=== PATIENT | female | born 1985 | race Caucasian/White ===

== ENCOUNTER → 2023-08-06 09:24 | Outpatient (CLI) | payer OTHER, SELFPAY ==
--- NOTE | 2023-08-06 09:27 | DI.MG.S_ITS ---
BILATERAL DIGITAL DIAGNOSTIC MAMMOGRAM 3D/2D: 08/06/2023 CLINICAL: Palpable right breast lump. Focal right breast pain. Baseline exam. No prior exams were available for comparison. Both breasts are extremely dense, which lowers the sensitivity of mammography (category d />75% glandular tissue). A square skin marker was placed in the area of clinical pain in the right breast upper outer quadrant, and no mammographic abnormality is identified. No significant masses, calcifications, or other findings are seen in either breast. Of note, exam terminated early due to patient factors prior to complete evaluation of right breast clinical palpable area of concern in the right lower inner quadrant. IMPRESSION: INCOMPLETE: NEEDS ADDITIONAL IMAGING EVALUATION 1) No mammographic abnormality at site of clinical pain in the right breast upper outer quadrant. Recommend further evaluation with targeted right breast ultrasound. Patient will return on a later date to complete imaging. 2) Incomplete evaluation of right breast lower inner quadrant clinical area of palpable concern. Patient will return on a later date to complete imaging. 3) No mammographic evidence of malignancy in the left breast. Based on the Tyrer Cuzick model (a risk assessment model) the patient's lifetime risk is 16.1% and her 10 year risk is 1.4%. According to the ACR, ACS, and NCCN guidelines, an annual breast MRI exam along with mammogram is recommended if the patient's lifetime risk is 20% or greater. This exam was interpreted at Station ID: [id number]. NOTE: For mammograms, a report in lay terms will be sent to the patient. Approximately 15% of breast malignancies will not be visualized mammographically. In the management of a palpable breast mass, a negative mammogram must not discourage biopsy of a clinically suspicious lesion. Electronically Signed By: Christianne Vidal M.D., Ph.D. eb/:08/10/2023 21:56:29 ACR BI-RADS Category 0: Incomplete 3340F
== END ==
PROVIDERS: PCP Nurse Practitioner Family; Referring Provider Nurse Practitioner Family; Visit Provider Nurse Practitioner Family
DX: N63.10 Unspecified lump in the right breast, unspecified quadrant (principal); R22.2 Localized swelling, mass and lump, trunk; R92.343 Mammographic extreme density, bilateral breasts; R92.2 Inconclusive mammogram
CPT/HCPCS: 77066; G0279

== ENCOUNTER 2023-08-06 10:15 | Emergency (ER) | payer OTHER, SELFPAY ==
[2023-08-06] VITALS (35 sets, daily range): BP systolic 64–118; BP diastolic 46–92; PULSE 55–86; RESP 11–29; TEMP 36.3–36.4; O2SAT 97–100; BMI 16.7
--- NOTE | 2023-08-06 10:18 | ED.GENADULT ---
HPI - General Adult General Chief complaint: Unresponsive Stated complaint: LOC Time Seen by Provider: 08/06/23 10:17 Source: patient Mode of arrival: Wheelchair Limitations: no limitations History of Present Illness HPI narrative: Patient has a 38-year-old female. She was in the DI department getting an outpatient mammogram when he was reported that the patient passed out. Patient was brought to the emergency department in a wheelchair. She was pale. Did have a pulse and was breathing on her own but was unresponsive. When she was moved to the [place] and a sternal rub was made the patient then regained consciousness. She was oriented as to where she was. She stated that she was feeling very dizzy and hot. No chest pain. No vomiting. No abdominal pain. Related Data Allergies Allergy/AdvReac Type Severity Reaction Status Date / Time onion Allergy Verified 08/06/23 10:25 Review of Systems Review of Systems ROS Unobtainable: All systems reviewed & are unremarkable except as noted in HPI and below Patient History Social History Smoking Status: Never smoker Exam Initial Vital Signs Initial Vital Signs: Vital Signs Pulse Rate 58 L 08/06/23 10:17 Respiratory Rate 26 H 08/06/23 10:17 Blood Pressure 100/54 L 08/06/23 10:17 Pulse Oximetry 100 08/06/23 10:17 HENMT Head: normal to inspection Resp Effort & Inspection: normal respiratory effort Auscultation: clear to auscultation bilaterally Cardio Rate: regular rate Rhythm: regular rhythm Skin General: no rashes or lesions noted Neuro General: patient alert, patient awake and moves all extremities Extrem General: normal to inspection Course Orders Ordered: ED Orders 08/06/23 10:18 Complete Blood Count AUTO DIFF Stat Comprehensive Metabolic Panel Stat Ethanol (ETOH) Stat Lipase Stat Test Serum,Qual Stat EKG-12 Lead Stat Discontinued Medications Sodium Chloride (Normal Saline 0.9%) 1,000 mls @ 1,000 mls/hr IV BOLUS ONE Stop: 08/06/23 11:16 Last Infusion: 08/06/23 10:50 Dose: Infused Documented By: Admin: 08/06/23 10:23 Dose: 1,000 mls/hr Documented By: JESSICA Sodium Chloride (Normal Saline 0.9%) 1,000 mls @ 1,000 mls/hr IV BOLUS ONE Stop: 08/06/23 11:45 Last Infusion: 08/06/23 11:16 Dose: Infused Documented By: Admin: 08/06/23 10:45 Dose: 1,000 mls/hr Documented By: DONNA Vital Signs Vital signs: Vital Signs - 8 hr 08/06/23 10:17 08/06/23 10:17 08/06/23 10:20 Temperature 97.5 F L Pulse Rate 58 L 55 L Respiratory Rate 26 H 20 Blood Pressure 100/54 L 105/52 L Pulse Oximetry 100 100 Oxygen Delivery Method Room Air 08/06/23 10:21 08/06/23 10:21 08/06/23 10:25 Temperature Pulse Rate 59 L Respiratory Rate Blood Pressure 105/52 L 94/60 Pulse Oximetry 100 Oxygen Delivery Method Room Air 08/06/23 10:25 08/06/23 10:30 08/06/23 10:33 Temperature Pulse Rate 59 L 70 Respiratory Rate 29 H Blood Pressure 93/55 L Pulse Oximetry 100 98 Oxygen Delivery Method 08/06/23 10:33 08/06/23 10:36 08/06/23 10:36 Temperature 97.4 F L Pulse Rate 70 77 Respiratory Rate Blood Pressure 118/92 H Pulse Oximetry 100 Oxygen Delivery Method 08/06/23 10:44 08/06/23 10:44 08/06/23 10:48 Temperature Pulse Rate 78 Respiratory Rate Blood Pressure 64/46 L 98/67 Pulse Oximetry 100 Oxygen Delivery Method Room Air 08/06/23 10:48 08/06/23 10:55 08/06/23 10:55 Temperature Pulse Rate 86 78 Respiratory Rate Blood Pressure 91/59 L Pulse Oximetry 100 100 Oxygen Delivery Method 08/06/23 11:00 08/06/23 11:01 08/06/23 11:01 Temperature Pulse Rate 77 76 Respiratory Rate 24 Blood Pressure 109/54 L Pulse Oximetry 100 97 Oxygen Delivery Method Room Air 08/06/23 11:05 08/06/23 11:05 08/06/23 11:10 Temperature Pulse Rate 77 Respiratory Rate 26 H Blood Pressure 98/51 L 99/53 L Pulse Oximetry 97 Oxygen Delivery Method Room Air 08/06/23 11:10 08/06/23 11:15 08/06/23 11:15 Temperature Pulse Rate 70 61 Respiratory Rate 17 18 Blood Pressure 97/52 L Pulse Oximetry 100 100 Oxygen Delivery Method Room Air 08/06/23 11:20 08/06/23 11:20 08/06/23 11:25 Temperature Pulse Rate 60 Respiratory Rate 26 H Blood Pressure 99/53 L 94/52 L Pulse Oximetry 100 Oxygen Delivery Method 08/06/23 11:25 08/06/23 11:30 08/06/23 11:30 Temperature Pulse Rate 65 66 Respiratory Rate 27 H 20 Blood Pressure 99/49 L Pulse Oximetry 100 100 Oxygen Delivery Method Room Air 08/06/23 11:35 08/06/23 11:35 08/06/23 11:40 Temperature Pulse Rate 65 Respiratory Rate 16 Blood Pressure 96/54 L 102/52 L Pulse Oximetry 100 Oxygen Delivery Method 08/06/23 11:40 08/06/23 11:45 08/06/23 11:45 Temperature Pulse Rate 71 69 Respiratory Rate 26 H 16 Blood Pressure 92/50 L Pulse Oximetry 99 99 Oxygen Delivery Method 08/06/23 11:48 08/06/23 11:48 08/06/23 11:50 Temperature Pulse Rate 83 Respiratory Rate 26 H Blood Pressure 95/50 L 98/50 L Pulse Oximetry 100 Oxygen Delivery Method 08/06/23 11:50 08/06/23 11:55 08/06/23 11:55 Temperature Pulse Rate 72 75 Respiratory Rate 26 H 26 H Blood Pressure 93/53 L Pulse Oximetry 100 100 Oxygen Delivery Method Room Air 08/06/23 12:00 08/06/23 12:00 08/06/23 12:05 Temperature Pulse Rate 67 73 Respiratory Rate 24 22 Blood Pressure 99/48 L Pulse Oximetry 100 100 Oxygen Delivery Method Room Air 08/06/23 12:05 08/06/23 12:10 08/06/23 12:10 Temperature Pulse Rate 69 Respiratory Rate 17 Blood Pressure 98/49 L 101/50 L Pulse Oximetry 99 Oxygen Delivery Method 08/06/23 12:15 08/06/23 12:15 08/06/23 12:20 Temperature Pulse Rate 74 75 Respiratory Rate 17 26 H Blood Pressure 97/53 L Pulse Oximetry 99 100 Oxygen Delivery Method 08/06/23 12:20 08/06/23 12:25 08/06/23 12:25 Temperature Pulse Rate 78 Respiratory Rate 16 Blood Pressure 98/55 L 100/51 L Pulse Oximetry 100 Oxygen Delivery Method 08/06/23 12:30 08/06/23 12:30 08/06/23 12:35 Temperature Pulse Rate 78 84 Respiratory Rate 15 25 H Blood Pressure 97/50 L Pulse Oximetry 100 100 Oxygen Delivery Method 08/06/23 12:37 08/06/23 12:37 08/06/23 12:40 Temperature Pulse Rate 86 Respiratory Rate 24 Blood Pressure 104/53 L 107/55 L Pulse Oximetry Oxygen Delivery Method Medical Decision Making Lab Data Lab results reviewed: Yes I reviewed the patient's lab results. 08/06/23 10:18 08/06/23 10:18 Labs: Lab Results 08/06/23 Range/Units 10:18 WBC 11.3 H (4.5-11.0) X10^3/uL RBC 4.37 (4.0-5.2) X10^6/uL Hgb 13.1 (12.0-16.0) g/dL Hct 39.3 (36-46) % MCV 89.8 (80-100) fL MCH 30.0 (26-34) PG MCHC 33.3 (30-36) % RDW 14.5 (11.6-14.8) % Plt Count 203 (150-400) X10^3/uL Neut % (Auto) 61.2 (50-75) % Lymph % (Auto) 27.9 (25-40) % [place] % (Auto) 9.4 (3-14) % Eos % (Auto) 0.8 L (2-4) % Baso % (Auto) 0.7 (0-2) % Neut # (Auto) 6900 (1528-3998) /uL Lymph # (Auto) 3200 (7924-8588) /uL [place] # (Auto) 1100 H (0-900) /uL Eos # (Auto) 100 (0-450) /uL Baso # (Auto) 100 (0-100) /uL Sodium 138 (137-145) mmol/L Potassium 3.7 (3.4-5.1) mmol/L Chloride 107 (98-107) mmol/L Carbon Dioxide 25 (22-32) mmol/L BUN 18 H (7-17) mg/dL Creatinine 0.62 (0.52-1.04) mg/dL Estimated GFR > 60 (>60) mL/min BUN/Creatinine Ratio 29.0 H (6-22) Glucose 107 H (70-100) mg/dL Calcium 9.1 (8.4-10.2) mg/dL Total Bilirubin 0.7 (0.2-1.3) mg/dL AST 28 (14-36) IU/L ALT 14 (<35) IU/L Alkaline Phosphatase 61 (38-126) U/L Total Protein 7.6 (6.3-8.2) g/dL Albumin 4.6 (3.5-5.0) g/dL Globulin 3.0 (1.7-4.1) g/dL Albumin/Globulin Ratio 1.5 (1.0-2.8) Lipase 175 (23-300) U/L Serum , Qual Negative (Negative) Ethyl Alcohol < 10 ( - 10) mg/dL Point of Care Testing Glucose POC 120 Point of care testing: Point of Care Testing Glucose POC 120 ECG Data Attestation: I personally reviewed and interpreted this ECG as follows: Interpretation: Sinus bradycardia Ventricular rate of 58 Normal axis Normal QRS Normal QTC No ST T wave changes MDM Narrative Medical decision making narrative: Patient did have what appears to be a syncopal episode while getting a mammogram done. Here in the ER her blood pressure was somewhat low however she is very skinny. Her blood sugar was slightly low and she did state that she ate breakfast this morning after fluids and time and food here in the ER she reports resolution of symptoms. She did pass out about 1 week ago when she had blood drawn. She is scheduled to see Neurology about potential issues with MS. Will discharge patient home with return precautions she expressed understanding and agreement with plan. Discharge Plan Departure Patient Disposition: Home Clinical Impression: Syncope Instructions: Fainting Activity Restrictions/Additional Instructions: Continue to take any medications as directed. Recommend that you contact your primary care doctor for a follow-up and keep all of your scheduled medical appointments. Return to the emergency department for new or worsening symptoms. Referrals: Dominique Main FNP-C [Primary Care Provider] - Stand Alone Forms: Patient Portal/API, Naloxone Standing Order CHRISTY
[2023-08-06] MEDS: SODIUM CHLORIDE 0.9% 1,000 ML 1000 ML IV ×2 (10:23→10:45)
[2023-08-06 10:33] LABS: Add Manual Diff / Slide Review NO; Basophils Absolute Auto 100 /uL (0-100); Basophils Percent Auto 0.7 % (0-2); Eosinophils Absolute Auto 100 /uL (0-450); Eosinophils Percent Auto 0.8 % (2-4); Hematocrit 39.3 % (36-46); Hemoglobin 13.1 g/dL (12.0-16.0); Lymphocytes Absolute Auto 3200 /uL (1100-4500); Lymphocytes Percent Auto 27.9 % (25-40); Mean Corpuscular HGB Conc 33.3 % (30-36); Mean Corpuscular Volume 89.8 fL (80-100); Monocytes Absolute Auto 1100 /uL (0-900); Monocytes Percent Auto 9.4 % (3-14); Neutrophils Absolute Auto 6900 /uL (1500-7000); Neutrophils Percent Auto 61.2 % (50-75); Platelet Count 203 X10^3/uL (150-400); Red Blood Cell Count 4.37 X10^6/uL (4.0-5.2); Red Cell Distribution Width 14.5 % (11.6-14.8); White Blood Cell Count 11.3 X10^3/uL (4.5-11.0)
[2023-08-06 10:37] LABS: Alanine Aminotransferase 14 IU/L (<35); Albumin 4.6 g/dL (3.5-5.0); Albumin Globulin Ratio 1.5 (1.0-2.8); Alkaline Phosphatase 61 U/L (38-126); Aspartate Aminotransferase 28 IU/L (14-36); Bilirubin Total 0.7 mg/dL (0.2-1.3); Blood Urea Nitrogen 18 mg/dL (7-17); Calcium 9.1 mg/dL (8.4-10.2); Carbon Dioxide 25 mmol/L (22-32); Chloride 107 mmol/L (98-107); Estimated Glomerular Filt Rate > 60 mL/min (>60); Ethanol (ETOH) < 10 mg/dL; Glucose 107 mg/dL (70-100); HEMOLYSIS < 15 (0-50); Lipase 175 U/L (23-300); Potassium 3.7 mmol/L (3.4-5.1); Sodium 138 mmol/L (137-145); Total Protein 7.6 g/dL (6.3-8.2)
[2023-08-06 10:40] LABS: Pregnancy Test Serum,Qual Negative (Negative)
--- NOTE | 2023-08-06 10:44 | PC.NURSE ---
Pt hypotensive symptomatic with dizziness, shiveriing . Pt repositioned to trandelenburg position, 1st liter of NS fluids completed. Dr. Bernabe notified and 2nd liter fluids ordered (see MAY). 2nd IV placed.
--- NOTE | 2023-08-06 11:17 | PC.NURSE ---
Addendum entered by Jose Roberto Feng R.N. 08/06/23 11:19: Pt reports history of hypothyroidism, hypotension, and is currently being worked up for possible MS. Currently has an appointment with neurology in November with difficulty scheduling an appt. sooner. Original Note: Pt laughing in room with S/O. Dizziness has resolved, pt remains light headed. She is no longer shaking, states feel comfortable.
== END 2023-08-06 13:20 | disposition home or self-care (01) ==
PROVIDERS: Emergency Provider Emergency Medicine; PCP Nurse Practitioner Family
DX: R55 Syncope and collapse (principal)
CPT/HCPCS: 77066; 80053; 80320; 82962; 83690; 84703; 85025; 93005; 93010; 99283; 99284; G0279

== ENCOUNTER → 2023-08-08 14:14 | Outpatient (CLI) | payer OTHER, SELFPAY ==
--- NOTE | 2023-08-08 | DI.MG.S_ITS ---
UNILATERAL RIGHT DIGITAL DIAGNOSTIC MAMMOGRAM 3D/2D WITH ADDITIONAL VIEWS: 08/08/2023 CLINICAL: Additional evaluation requested from prior study. Comparison is made to exams dated: 08/06/2023 mammogram and 08/08/2023 ultrasound - [facility]. The right breast is extremely dense, which lowers the sensitivity of mammography (category d />75% glandular tissue). In the area of clinical palpable concern as indicated by the BB marker, there is a 0.7 oval asymmetry in the lower posterior region on MLO view. This finding may correspond to cluster of asymmetries seen in the central middle depth breast on CC view. No other significant masses or calcifications are seen in the right breast. IMPRESSION: INCOMPLETE: NEEDS ADDITIONAL IMAGING EVALUATION Right breast 0.7 cm oval asymmetry in the lower inner posterior position. An ultrasound is recommended for further evaluation and is scheduled to immediately follow this examination. Based on the Tyrer Cuzick model (a risk assessment model) the patient's lifetime risk is 16.1% and her 10 year risk is 1.4%. According to the ACR, ACS, and NCCN guidelines, an annual breast MRI exam along with mammogram is recommended if the patient's lifetime risk is 20% or greater. This exam was interpreted at Station ID: [id number]. NOTE: For mammograms, a report in lay terms will be sent to the patient. Approximately 15% of breast malignancies will not be visualized mammographically. In the management of a palpable breast mass, a negative mammogram must not discourage biopsy of a clinically suspicious lesion. Electronically Signed By: Christianne Vidal M.D., Ph.D. eb/:08/10/2023 22:16:21 ACR BI-RADS Category 0: Incomplete 3340F
--- NOTE | 2023-08-08 14:15 | DI.US.S_ITS ---
PROCEDURE: US BREAST RT LIMITED COMPARISON: None. INDICATIONS: RIGHT BREAST LUMP FINDINGS: IMPRESSION: Dictated by: Christianne Vidal M.D.,Ph.D. on 08/08/2023 at 15:20 Approved by: Christianne Vidal M.D.,Ph.D. on 08/08/2023 at 15:35
--- NOTE | 2023-08-08 14:48 | DI.US.S_ITS ---
Patient Name: JAY OROURKE date: 1985 Sex: F Attending Physician: Jose David Indications: Date: 08/10/2023 22:35 At the request of: CHERYL FRY Procedure: US breast RT limited LIMITED ULTRASOUND OF RIGHT BREAST: 08/08/2023 CLINICAL: Patient returns for additional imaging for palpable right breast lump and focal right breast pain. Comparison is made to exams dated: 08/06/2023 mammogram - [facility]. Ultrasound of the right breast was performed. There is a 0.7 cm x 0.3 cm x 0.4 cm oval mass with a circumscribed margin in the right breast at 5 o'clock, 6 cm from the nipple. This oval mass is hypoechoic. This correlates as palpated and with mammography findings. Color flow imaging demonstrates that there is no vascularity present. There is an incidental 3 mm benign simple cyst at 5 o'clock, 7 cm from the nipple. There is a 0.6 cm x 0.2 cm x 0.8 cm oval mass with a circumscribed margin in the right breast at 10 o'clock, 4 cm from the nipple. This oval mass is hypoechoic. This correlates with area of clinical pain. Color flow imaging demonstrates that there is no vascularity present. No sonographic abnormality seen in the area of clinical pain in the right breast at 11 o'clock, 4 cm from the nipple. No abnormal lymph nodes are seen in the axilla. IMPRESSION: PROBABLY BENIGN 1) Right breast 0.7 cm hypoechoic oval circumscribed mass at 5 o'clock, 6 cm from the nipple corresponding to area of clinical palpable concern. Finding may represent a complicated cyst and is Continued Report - Page 2 of 2 Patient Name: JAY OROURKE date: 1985 Sex: F Attending Physician: Jose David Indications: Date: 08/10/2023 22:35 At the request of: CHERYL FRY Procedure: US breast RT limited probably benign. A follow-up mammogram and an ultrasound in 6 months is recommended to demonstrate stability. 2) Right breast 0.8 cm hypoechoic oval circumscribed mass at 10 o'clock, 4 cm from the nipple corresponding to area of clinical pain. Finding may represent a complicated cyst and is probably benign. A follow-up mammogram and an ultrasound in 6 months is recommended to demonstrate stability. 3) No sonographic abnormality in the area of clinical concern at 11 o'clock, 4 cm from the nipple. Clinical follow-up is recommended, and further management of palpable abnormalities or other focal signs or symptoms should be based on the results of clinical evaluation. If palpable abnormality or other concerning symptom persists or progresses, further clinical evaluation should be considered. Findings and recommendations were conveyed to the patient during today's evaluation. This exam was interpreted at Station ID: [id number]. Electronically Signed By: Christianne Vidal M.D., Ph.D. eb/:08/10/2023 22:35:30 letter sent: Followup Recommended Ultrasound BI-RADS: 3 Probably benign
== END ==
PROVIDERS: PCP Nurse Practitioner Family; Referring Provider Nurse Practitioner Family; Visit Provider Nurse Practitioner Family
DX: N63.14 Unspecified lump in the right breast, lower inner quadrant; R92.8 Other abnormal and inconclusive findings on diagnostic imaging of breast; N63.11 Unspecified lump in the right breast, upper outer quadrant; N60.01 Solitary cyst of right breast; R92.341 Mammographic extreme density, right breast
CPT/HCPCS: 76642; 77065; G0279

== ENCOUNTER 2024-01-23 09:10 | Observation (INO) | payer OTHER, SELFPAY ==
[2024-01-23] VITALS (24 sets, daily range): BP systolic 93–120; BP diastolic 46–72; PULSE 53–93; RESP 12–24; TEMP 36.3–37.2; O2SAT 95–100; BMI 16.4
--- NOTE | 2024-01-23 | PATH_ITS ---
[facility] Accession Number: [id number] No. of containers..01 Tissue . 01 Material submitted: . appendix - APPENDIX . 01 Diagnosis: APPENDIX, APPENDECTOMY: Acute appendicitis and associated acute serositis. Negative for dysplasia and malignancy. MRV 01/25/2024 1412 Local . 01 Electronically signed: . Martin Zapien MD, Pathologist NPI- [id number] . 01 Gross description: . Received in formalin with two patient identifiers and appendix, is a mitchell and yellow, vermiform appendix (5.3 cm in length by 1.0 cm in diameter) with mesoappendix up to 1.6 cm. The serosa is smooth with no mitchell exudate seen. The margin is inked blue, and the lumen is patent and dilated, containing a mitchell to slightly orange liquid and grumous material. The gavin are mitchell and average 0.4 cm thick. No lesions or perforations grossly seen. The lumen ranges from 0.1 to 0.5 cm in diameter. Compliance Professional sections include the margin, one-half of the bisected distal tip, and cross sections submitted in A1. ([id number]) /MRV 01/24/2024 1227 Local . 01 Pathologist provided ICD-10: K35.80 . 01 CPT . 894500 Specimen Comment: A courtesy copy of this report has been sent to [phone] Performed at: [address] [id number] MD Bharathi Rincon MD Phone: [phone]
[2024-01-23 09:37] LABS: Add Manual Diff / Slide Review NO; Basophils Absolute Auto 0 /uL (0-100); Basophils Percent Auto 0.4 % (0-2); Eosinophils Absolute Auto 100 /uL (0-450); Eosinophils Percent Auto 0.6 % (2-4); Hematocrit 39.5 % (36-46); Hemoglobin 13.2 g/dL (12.0-16.0); Lymphocytes Absolute Auto 1300 /uL (1100-4500); Lymphocytes Percent Auto 14.3 % (25-40); Mean Corpuscular HGB Conc 33.4 % (30-36); Mean Corpuscular Hemoglobin 30.4 PG (26-34); Monocytes Absolute Auto 1100 /uL (0-900); Monocytes Percent Auto 11.6 % (3-14); Neutrophils Absolute Auto 6900 /uL (1500-7000); Neutrophils Percent Auto 73.1 % (50-75); Platelet Count 156 X10^3/uL (150-400); Red Blood Cell Count 4.33 X10^6/uL (4.0-5.2); Red Cell Distribution Width 13.6 % (11.6-14.8); White Blood Cell Count 9.4 X10^3/uL (4.5-11.0)
[2024-01-23 09:38] LABS: Alanine Aminotransferase 12 IU/L (<35); Albumin 4.5 g/dL (3.5-5.0); Albumin Globulin Ratio 1.7 (1.0-2.8); Alkaline Phosphatase 45 U/L (38-126); Aspartate Aminotransferase 25 IU/L (14-36); BUN Creatinine Ratio 21.2 (6-22); Bilirubin Total 0.5 mg/dL (0.2-1.3); Blood Urea Nitrogen 14 mg/dL (7-17); Calcium 8.8 mg/dL (8.4-10.2); Carbon Dioxide 25 mmol/L (22-32); Chloride 106 mmol/L (98-107); Estimated Glomerular Filt Rate > 60 mL/min (>60); Globulin 2.7 g/dL (1.7-4.1); Glucose 87 mg/dL (70-100); HEMOLYSIS < 15 (0-50); Lipase 149 U/L (23-300); Potassium 3.9 mmol/L (3.4-5.1); Sodium 137 mmol/L (137-145); Total Protein 7.2 g/dL (6.3-8.2)
--- NOTE | 2024-01-23 10:30 | ED_ITS ---
HPI - Abdominal Pain General Chief Complaint: Abdominal Pain Stated Complaint: severe abd pain r side Time Seen by Provider: 01/23/24 10:30 Source: patient, RN notes reviewed and old records reviewed Mode of arrival: Family Vehicle Limitations: no limitations History of Present Illness HPI narrative: 38-year-old female no reported medical issues who presents with complaint of right lower quadrant pain. Patient states pain woke up from sleep this morning. No back or flank pain just in the right lower quadrant. Denies any fevers or chills. She has had some nausea no vomiting. Denies any diarrhea or constipation. Denies any dysuria, urgency or frequency. No new vaginal bleeding or discharge. Patient states last menstrual. Has a proximally 2 weeks ago. She does not have any concerns for at this time. States no daily medications, no prior surgeries. No known drug allergies. No regular tobacco, alcohol or recreational drugs. Related Data Home Medications Medication Instructions Recorded Confirmed estradiol 0.01% (0.1 mg/gram) 1 g vaginal 3XW 01/23/24 01/23/24 vaginal cream Allergies Allergy/AdvReac Type Severity Reaction Status Date / Time onion Allergy Anaphylaxis Verified 01/23/24 15:14 Review of Systems Review of Systems ROS Unobtainable: All systems reviewed & are unremarkable except as noted in HPI and below Patient History Medical History (Updated 01/23/24 @ 15:17 by Eben Hunt RN) Hx of fall Ambulates with cane Osteoporosis Hyperparathyroidism Neurologic abnormality Hypothyroidism Social History household members: children Smoking Status: Never smoker alcohol intake: never Smoking Status: Never smoker alcohol intake frequency: 0-2 drinks per day Substance Use Type: marijuana Exam Narrative Exam Narrative: GENERAL: Alert and oriented x three, thin, well-appearing female in mild distress HEENT: Head normocephalic, atraumatic, EOMI, pupils reactive, face symmetric, moist mucous membranes NECK: Supple, full range of motion CARDIOVASCULAR: Regular rate and rhythm without murmurs, rubs or gallops. RESPIRATORY: Breath sounds equal bilaterally, no wheezes rales or rhonchi. ABDOMEN: Soft, positive for right lower quadrant tenderness, positive Rovsing sign. Normoactive bowel sounds all 4 quadrants. No guarding, positive rebound, no rigidity, no mass : No CVA tenderness bilaterally. EXTREMITIES: Normal range of motion, no clubbing or edema. Neurovascularly intact NEUROLOGICAL: Cranial nerves II through XII grossly intact. Moving all extremities SKIN: Warm, dry, no petechiae, no rashes or lesions. Initial Vital Signs Initial Vital Signs: Vital Signs Pulse Rate 93 H 01/23/24 09:18 Blood Pressure 118/57 L 01/23/24 09:18 Pulse Oximetry 99 01/23/24 09:18 Course Orders Ordered: ED Orders 01/23/24 09:20 Test Serum,Qual Stat 01/23/24 09:21 Complete Blood Count AUTO DIFF Stat Comprehensive Metabolic Panel Stat Lipase Stat 01/23/24 09:22 EKG-12 Lead Stat 01/23/24 10:44 CT abdomen pelvis w con Stat Acetaminophen (Acetaminophen 325 Mg Tablet) 650 mg PO Q6H PRN PRN Reason: Fever/Mild Pain (1-3) Hydromorphone HCl (Hydromorphone 0.5 Mg Inj) 0.5 mg IV Q2H PRN PRN Reason: Pain, Severe (7-10) Piperacillin Sod/Tazobactam (Sod 3.375 gm/ Sodium Chloride) 100 mls @ 25 mls/hr IV Q8H BENNY Stop: 01/26/24 20:59 Lactated Ringer's (Lactated Ringers) 1,000 mls @ 42 mls/hr IV NOW ONE Stop: 01/24/24 15:21 Last Admin: 01/23/24 15:34 Dose: 42 mls/hr Documented By: VINI Ibuprofen (Ibuprofen 600 Mg Tablet) 600 mg PO Q6H PRN PRN Reason: Fever/Mild Pain (1-3) Naloxone HCl (Naloxone 0.4 Mg/Ml Vial) 0.2 mg IV Q2MIN PRN PRN Reason: Opiate Reversal Ondansetron HCl (Ondansetron 4 Mg/2 Ml Inj) 4 mg IV NOW PRN PRN Reason: Nausea And Vomiting Last Admin: 01/23/24 10:56 Dose: 4 mg Documented By: KAYLEE Oxycodone HCl (Oxycodone Ir 5 Mg Tablet) 5 mg PO Q3H PRN PRN Reason: Pain, Moderate (4-6) Discontinued Medications Piperacillin Sod/Tazobactam (Sod 4.5 gm/ Sodium Chloride) 100 mls @ 200 mls/hr IV NOW ONE Stop: 01/23/24 12:35 Last Infusion: 01/23/24 13:42 Dose: 0 mls/hr Documented By: Admin: 01/23/24 13:01 Dose: 200 mls/hr Documented By: RAISA Acetaminophen (Ofirmev) 1,000 mg in 100 mls @ 400 mls/hr IV NOW ONE Stop: 01/23/24 12:50 Last Infusion: 01/23/24 13:22 Dose: Infused Documented By: Admin: 01/23/24 12:56 Dose: 400 mls/hr Documented By: BS Piperacillin Sod/Tazobactam (Sod 3.375 gm/ Sodium Chloride) 100 mls @ 25 mls/hr IV Q8H BENNY Stop: 01/26/24 13:46 Ketorolac Tromethamine (Ketorolac 30 Mg/Ml Vial) 15 mg IV NOW ONE Stop: 01/23/24 10:45 Last Admin: 01/23/24 10:56 Dose: 15 mg Documented By: KAYLEE Scopolamine (Scopolamine 1 Patch) 1 patch TOP NOW ONE Stop: 01/23/24 16:09 Last Admin: 01/23/24 16:09 Dose: 1 patch Documented By: VINI Vital Signs Vital signs: Vital Signs - 8 hr 01/23/24 09:30 01/23/24 09:30 01/23/24 10:00 Pulse Rate 71 Blood Pressure 107/54 L 99/53 L Pulse Oximetry 100 01/23/24 10:00 01/23/24 10:30 01/23/24 10:30 Pulse Rate 74 63 Blood Pressure 102/52 L Pulse Oximetry 100 100 01/23/24 12:28 01/23/24 12:29 01/23/24 12:29 Pulse Rate 91 H 77 Blood Pressure 109/55 L Pulse Oximetry 100 100 01/23/24 12:30 01/23/24 12:30 Pulse Rate 70 Blood Pressure 108/58 L Pulse Oximetry 100 MDM - Abdominal Pain Lab Data 01/23/24 09:21 01/23/24 09:21 Labs: Lab Results 01/23/24 01/23/24 Range/Units 09:20 09:21 WBC 9.4 (4.5-11.0) X10^3/uL RBC 4.33 (4.0-5.2) X10^6/uL Hgb 13.2 (12.0-16.0) g/dL Hct 39.5 (36-46) % MCV 91.0 (80-100) fL MCH 30.4 (26-34) PG MCHC 33.4 (30-36) % RDW 13.6 (11.6-14.8) % Plt Count 156 (150-400) X10^3/uL Neut % (Auto) 73.1 (50-75) % Lymph % (Auto) 14.3 L (25-40) % [place] % (Auto) 11.6 (3-14) % Eos % (Auto) 0.6 L (2-4) % Baso % (Auto) 0.4 (0-2) % Neut # (Auto) 6900 (1509-5317) /uL Lymph # (Auto) 1300 (5061-6305) /uL [place] # (Auto) 1100 H (0-900) /uL Eos # (Auto) 100 (0-450) /uL Baso # (Auto) 0 (0-100) /uL Sodium 137 (137-145) mmol/L Potassium 3.9 (3.4-5.1) mmol/L Chloride 106 (98-107) mmol/L Carbon Dioxide 25 (22-32) mmol/L BUN 14 (7-17) mg/dL Creatinine 0.66 (0.52-1.04) mg/dL Estimated GFR > 60 (>60) mL/min BUN/Creatinine Ratio 21.2 (6-22) Glucose 87 (70-100) mg/dL Calcium 8.8 (8.4-10.2) mg/dL Total Bilirubin 0.5 (0.2-1.3) mg/dL AST 25 (14-36) IU/L ALT 12 (<35) IU/L Alkaline Phosphatase 45 (38-126) U/L Total Protein 7.2 (6.3-8.2) g/dL Albumin 4.5 (3.5-5.0) g/dL Globulin 2.7 (1.7-4.1) g/dL Albumin/Globulin Ratio 1.7 (1.0-2.8) Lipase 149 (23-300) U/L Serum , Qual Negative (Negative) Point of care testing: Point of Care Testing Test Results Negative Urine Dip Bedside Urine Glucose Negative Bedside Urine Bilirubin - Negative Bedside Urine Ketone - Negative Urine Specific [place] 1.010 Bedside Urine Occult Blood - Negative Bedside Urine pH 6.5 Bedside Urine Protein - Negative Bedside Urine Urobilinogen - Negative Bedside Urine Nitrite - Negative Bedside Urine Leukocytes - Negative Esterase Imaging Data CT scan - abdomen/pelvis: Radiologist's Impression: Close Abdomen/Pelvis CT (Signed) Raciel Weeks - 01/23/24 Launch?[address] [address] [address] Scan Report Signed Patient: Ankita Mendoza MR#: [id number] : 1985 Acct:[id number] Age/Sex: 38 / F Date of Service: 01/23/24 Loc: ED Accession Number: [id number] Procedure: CT abdomen pelvis w con Ordering Provider: Lori Hough D.O. PROCEDURE: CT ABDOMEN PELVIS W CON INDICATIONS: RLQ pain, started overnight, + rosvings TECHNIQUE: After the administration of intravenous contrast, axial sections acquired from the lung bases to the pubic symphysis. Coronal and sagittal reformats were performed. For radiation dose reduction, the following was used: automated exposure control, adjustment of mA and/or kV according to patient size. COMPARISON: None. FINDINGS: Image quality: Diagnostic Lower chest: Mild basal atelectasis. Liver: Indeterminate subcentimeter lesions are too small to characterize, usually cysts or hemangiomas Gallbladder and biliary system: Possible small polyp at the gallbladder fundus versus small stone. No pathologic biliary dilation. This could be better evaluated with ultrasound if clinically needed. Pancreas: No ductal dilation Spleen: Nonenlarged Adrenals: No discrete nodules Kidneys: No solid mass. No hydronephrosis Vessels and lymph nodes: The main portal vein appears patent. No abdominal aortic aneurysm. No pathologic lymph nodes by size criteria. Bowel and peritoneum: No evidence of small bowel obstruction. Moderate to large fecal loading is present. No pathologic ascites or drainable abscess. The appendix is mildly distended measuring 8 mm with mild surrounding fat stranding. Body wall: Unremarkable Pelvis: Bladder is unremarkable. Possible uterine fibroids. Prominent adnexal vessels are present. Possible right ovarian corpus luteum cyst. The uterus is prominent and heterogeneous enhancing, possibly physiologic for age. Bones: No acute or suspicious osseous finding. IMPRESSION: Mildly distended appendix measuring 8 mm with mild surrounding edematous fat stranding suspicious for acute uncomplicated appendicitis. Moderate to large fecal loading. No small bowel obstruction. Prominent uterus with heterogeneous enhancement, likely physiologic for age. Suspected fundal fibroid Prominent left adnexal veins, sometimes seen in the setting of pelvic congestion. Other findings as above Dictated by: Raciel Weeks M.D. on 01/23/2024 at 11:59 Approved by: Raciel Weeks M.D. on 01/23/2024 at 12:04 [facility] Narrative Medical decision making narrative: CBC shows a white count of 9.4 hemoglobin of 13 platelets of 156. Electrolytes are normal BUN 14 creatinine 0.66 glucose is 87 LFTs are negative. is negative. Point of care urine is negative. CT abdomen pelvis but with oral contrast as patient is quite thin her BMI is 16 and felt it might not be an adequate study with IV contrast. CT shows mildly distended appendix measuring 8 mm mild surrounding edematous fat stranding suspicious for acute noncompliant appendicitis [id number] fecal loading no small-bowel obstruction prominent uterus with heterogeneous enhancement likely physiologic 8 suspected fundal fibroid prominent left adnexal vein sometimes setting of pelvic congestion. Patient received Toradol, Zofran and Zosyn. NPO. Updated patient last meal was 7:00 p.m. has not had anything to eat or drink since. She states Toradol was helpful she is still uncomfortable. She would like to avoid narcotics unless absolutely necessary. We will try a dose of IV Tylenol but discussed can have something stronger if inadequate. Spoke with Dr. Olson, general surgery: Accepts plan for OR likely later this afternoon/evening. Discharge Plan Departure Patient Disposition: Admitted as Observation Clinical Impression: Acute appendicitis Qualifiers: Acute appendicitis type: unspecified acute appendicitis type Qualified Code(s): K35.80 - Unspecified acute appendicitis Admit Date/Time: 01/23/24 12:39 Admit Provider: Alex Olson
[2024-01-23 10:42] LABS: Pregnancy Test Serum,Qual Negative (Negative)
--- NOTE | 2024-01-23 10:44 | DI.CT.S_ITS ---
PROCEDURE: CT ABDOMEN PELVIS W CON INDICATIONS: RLQ pain, started overnight, + rosvings TECHNIQUE: After the administration of intravenous contrast, axial sections acquired from the lung bases to the pubic symphysis. Coronal and sagittal reformats were performed. For radiation dose reduction, the following was used: automated exposure control, adjustment of mA and/or kV according to patient size. COMPARISON: None. FINDINGS: Image quality: Diagnostic Lower chest: Mild basal atelectasis. Liver: Indeterminate subcentimeter lesions are too small to characterize, usually cysts or hemangiomas Gallbladder and biliary system: Possible small polyp at the gallbladder fundus versus small stone. No pathologic biliary dilation. This could be better evaluated with ultrasound if clinically needed. Pancreas: No ductal dilation Spleen: Nonenlarged Adrenals: No discrete nodules Kidneys: No solid mass. No hydronephrosis Vessels and lymph nodes: The main portal vein appears patent. No abdominal aortic aneurysm. No pathologic lymph nodes by size criteria. Bowel and peritoneum: No evidence of small bowel obstruction. Moderate to large fecal loading is present. No pathologic ascites or drainable abscess. The appendix is mildly distended measuring 8 mm with mild surrounding fat stranding. Body wall: Unremarkable Pelvis: Bladder is unremarkable. Possible uterine fibroids. Prominent adnexal vessels are present. Possible right ovarian corpus luteum cyst. The uterus is prominent and heterogeneous enhancing, possibly physiologic for age. Bones: No acute or suspicious osseous finding. IMPRESSION: Mildly distended appendix measuring 8 mm with mild surrounding edematous fat stranding suspicious for acute uncomplicated appendicitis. Moderate to large fecal loading. No small bowel obstruction. Prominent uterus with heterogeneous enhancement, likely physiologic for age. Suspected fundal fibroid Prominent left adnexal veins, sometimes seen in the setting of pelvic congestion. Other findings as above Dictated by: Raciel Weeks M.D. on 01/23/2024 at 11:59 Approved by: Raciel Weeks M.D. on 01/23/2024 at 12:04
[2024-01-23] MEDS: ONDANSETRON 4 MG/2 ML INJ IV (10:56)
[2024-01-23] MEDS: KETOROLAC 30 MG/ML VIAL 15 MG IV (10:56)
[2024-01-23] MEDS: ACETAMINOPHEN IV 1,000 MG/100 ML VIAL 400 MG IV (12:56)
[2024-01-23] MEDS: PIPERACILLIN/TAZO 4.5 GM in SODIUM CHLORIDE 0.9% 100 ML IV (13:01)
--- NOTE | 2024-01-23 13:37 | P.HP_ITS ---
History of Present Illness History of Present Illness Date Patient Seen: 01/23/24 Time Patient Seen: 13:38 Chief complaint: severe abd pain r side Narrative: Ankita Mendoza is a 38-year-old woman PMH hypothyroidism, possible multiple sclerosis seen in the emergency room for acute appendicitis. She awoke out of sleep with right lower quadrant pain this morning. CT abdomen pelvis demonstrates dilated appendix with fat stranding no abscess. She received 4.5 g of Zosyn. No prior abdominal surgery. She has an unspecified neurologic condition perhaps multiple sclerosis. 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 [facility] Medical History (Updated 01/23/24 @ 13:42 by Alex Olson MD) Neurologic abnormality Hypothyroidism Social History Smoking Status: Never smoker Meds Home Medications and Allergies Allergies Allergy/AdvReac Type Severity Reaction Status Date / Time onion Allergy Verified 08/06/23 10:25 Exam Vital Signs (past 8 hours): - 01/23/24 09:18 01/23/24 09:18 01/23/24 09:19 Temperature 97.4 F L Pulse Rate 93 H 82 Respiratory Rate 20 Blood Pressure 118/57 L 118/57 L Pulse Oximetry 99 99 Oxygen Delivery Method Room Air 01/23/24 09:30 01/23/24 09:30 01/23/24 10:00 Temperature Pulse Rate 71 Respiratory Rate Blood Pressure 107/54 L 99/53 L Pulse Oximetry 100 Oxygen Delivery Method 01/23/24 10:00 01/23/24 10:30 01/23/24 10:30 Temperature Pulse Rate 74 63 Respiratory Rate Blood Pressure 102/52 L Pulse Oximetry 100 100 Oxygen Delivery Method 01/23/24 12:28 01/23/24 12:29 01/23/24 12:29 Temperature Pulse Rate 91 H 77 Respiratory Rate Blood Pressure 109/55 L Pulse Oximetry 100 100 Oxygen Delivery Method 01/23/24 12:30 01/23/24 12:30 Temperature Pulse Rate 70 Respiratory Rate Blood Pressure 108/58 L Pulse Oximetry 100 Oxygen Delivery Method Oxygen Delivery Method Room Air Narrative Exam Narrative: General adult woman thin alert oriented no distress Chest nonlabored respiration Abdomen right lower quadrant tenderness no stephon peritonitis. Extremities warm well perfused Objective Labs 01/23/24 09:21 10/30/24 09:21 Labs: Laboratory Results - last 24 hr 01/23/24 01/23/24 09:20 09:21 WBC 9.4 RBC 4.33 Hgb 13.2 Hct 39.5 MCV 91.0 MCH 30.4 MCHC 33.4 RDW 13.6 Plt Count 156 Neut % (Auto) 73.1 Lymph % (Auto) 14.3 L [place] % (Auto) 11.6 Eos % (Auto) 0.6 L Baso % (Auto) 0.4 Neut # (Auto) 6900 Lymph # (Auto) 1300 [place] # (Auto) 1100 H Eos # (Auto) 100 Baso # (Auto) 0 Sodium 137 Potassium 3.9 Chloride 106 Carbon Dioxide 25 BUN 14 Creatinine 0.66 Estimated GFR > 60 BUN/Creatinine Ratio 21.2 Glucose 87 Calcium 8.8 Total Bilirubin 0.5 AST 25 ALT 12 Alkaline Phosphatase 45 Total Protein 7.2 Albumin 4.5 Globulin 2.7 Albumin/Globulin Ratio 1.7 Lipase 149 Serum , Qual Negative Assessment & Plan Assessment and plan (1) Acute appendicitis: Qualifiers: Acute appendicitis type: unspecified acute appendicitis type Qualified Code(s): K35.80 - Unspecified acute appendicitis Status: Acute Assessment & Plan narrative: 38-year-old woman with symptoms and radiographic findings consistent with acute uncomplicated appendicitis. I discussed management options including conservative therapy with antibiotics versus appendectomy, the risks and benefits of each. Following discussion her preference is to proceed with surgery. Overview of the operation described. Operative risks including hemorrhage, infection, damage to surrounding structures were reviewed. Her questions have been answered. -NPO -Zosyn -laparoscopic appendectomy 01/22 with anticipated discharge later today or tomorrow morning Time-Based Coding :: [TOTAL MINUTES] spent with patient and on the chart (including review of chart, obtaining history, exam, reviewing outside data, placing orders, documenting exam and treatment plan, and counseling patient) on [DATE].
[2024-01-23] MEDS: LACTATED RINGERS 1,000 ML 42 ML IV (15:34)
--- NOTE | 2024-01-23 15:37 | SUR.HOLD ---
Zoxyn was infusing when patient was transferred to the surgery department. Infusion complete.
[2024-01-23] MEDS: SCOPOLAMINE 1 PATCH TOP (16:09)
[2024-01-23] MEDS: PIPERACILLIN/TAZO 3.375 GM in SODIUM CHLORIDE 0.9% 100 ML IV (17:37)
[2024-01-23] MEDS: BUPIVACAINE 0.25% W/ EPI (PF) 10 ML VIAL 20 ML INJ (17:41)
--- NOTE | 2024-01-23 17:53 | SUR.OPER ---
Supine on padded OR bed, head on pillow, arms padded and LEFT tucked at side, legs uncrossed, safety belt at thigh, tape over blanket over lower legs .
[2024-01-23] MEDS: KETOROLAC 30 MG/ML VIAL IV (18:29)
--- NOTE | 2024-01-23 18:29 | PM.OP.1 ---
Operative Date/Time/Diagnoses Date of procedure: 01/23/24 Time of procedure: 18:30 Pre-op diagnosis: Acute appendicitis Post-op diagnosis: same Procedure & Clinicians Procedure: Laparoscopic appendectomy Same procedure as scheduled: Yes Indications: 38-year-old woman with symptoms and radiographic findings consistent with acute appendicitis. [facility] Surgeon: Alex Olson Click Yes if Unassisted: Yes Anesthesia Type: General Operative Notes Findings: Acute non perforated appendicitis Estimated Blood Loss (mL): 10 Procedure in detail: Patient was brought to the operating room placed supine on the table. Bilateral lower extremity compression devices were applied. Anesthesia was induced and they intubated with an endotracheal tube. They received 3.375 g of Zosyn prior to skin incision. The left arm was tucked and appropriately padded. They were prepped and draped in sterile fashion. Time-out was performed. An infraumbilical incision was made the umbilical stalk was grasped and elevated and incision was made and the abdomen was entered atraumatically. A 12 mm balloon trocar was then placed through the incision and pneumoperitoneum of 14 mm Hg was established. The scope was then inserted and the abdomen inspected, there was no evidence of injury upon entry. Two 5 mm ports were placed under direct visualization, one in the left lower quadrant and second in the lower midline. A thorough laparoscopic evaluation was performed inspecting all four quadrants. The patient was then tilted right side up. The small bowel was then swept to the upper aspect of the abdomen. The tenie were followed to the base of the cecum where the appendix was identified. The appendix was was mobilized from its lateral attachments. It was acutely inflamed but not perforated. The appendix was grasped and a window within the mesentery was made at the base of the appendix using the [place] dissector with care to avoid injuring the cecum. The mesoappendix was then divided using the endo-stapler with a staple length of 2.5 mm-white load. The mesenteric staple line was inspected for hemostasis. The appendix was then amputated flush at the cecum using the endo-stapler blue load. The specimen was retrieved using a endoscopic retrieval bag through the 10 mm infra-umbilical port. The right paracolic gutter and the pouch of [place] were irrigated The 5 mm ports were then removed under direct visualization. The umbilical fascial incision was closed with 0 Vicryl in a figure-eight fashion. The skin wounds were irrigated and closed with 4-0 Monocryl followed by the application of Dermabond. Sponge instrument count at the end of the operation was correct. The patient tolerated procedure well was extubated and transferred to the postoperative care unit in stable condition. Complications: none Post-operative Condition: stable Disposition: observation
[2024-01-23] MEDS: MEPERIDINE 50 MG/ML INJ 12.5 MG IV (18:46)
[2024-01-24] VITALS (8 sets, daily range): BP systolic 97–113; BP diastolic 41–60; PULSE 59–100; RESP 16–22; TEMP 36.6–37.2; O2SAT 93–98
[2024-01-24] MEDS: ACETAMINOPHEN 325 MG TABLET 650 MG PO ×2 (00:01→06:51)
[2024-01-24] MEDS: OXYCODONE IR 5 MG TABLET PO ×2 (06:50)
--- NOTE | 2024-01-24 11:00 | CM.DANOTE ---
Initial DCP Assessment Visit Note Reviewed EMR and team rounds for status updates. Met with pt and her dtr at bedside to introduce self and role, pt was found to be alert/oriented, and able to discuss her plan for d/c home, her dtr will be tranporting home today after she gets out of school. Pt lives independently in her own apartment with her children here in [place]. She denies any CM assistance or resources for d/c at this time. Payor: Corinne Varghese Attending: Dr. Olson Pt is a 38 year-old F who presented to the ED with right lower quadrant pain. She c/o nausea, but no vomiting at that time. CT abd/pelvis did show acute, uncomplicated appendicitis. Surgery was consulted, and the plan was made for appendectomy, which was completed last evening. Today, pt expresses feeling some discomfort from the surgery, however she already feeling better than she did when she first arrived to the ED. No further needs identified at this time. Discharge Planning/Care Management CM Discharge Assessment Start: 01/24/24 10:58 Freq: Status: Active Protocol: Document 01/24/24 10:58 DPL (Rec: 01/24/24 11:00 DPL [id number]) Discharge Planning Assessment Assigned Race Relations Adviser NERI Paul Advance Directives? No History Provided By Patient,Medical Record Has Patient been admitted in last 30 No days? Prior Living Arrangements House Household Members children Type of transporation used prior to Drives own vehicle admit Independent with ADL's Yes Is patient alert and oriented? Yes Comment N/A Caregiver for Another No Comment No identified home d/c needs at this time. Barriers to Discharge No Discharge Plan Home Transportation Arrangement Daughter Referrals Initiated None needed Whiteboard Updated in Patient Room with Yes name and ext. # of Race Relations Adviser Review Status In Process Please Provide Date Initial DC 01/24/24 Assessment Was Performed
--- NOTE | 2024-01-24 15:15 | PC.NURSE ---
pt dressed self, IV removed by ELIZ, RN gave discharge instructions and answered questions, pt discharged to private car with daughter for transportation, all belongings with pt, and will follow up as directed...
== END 2024-01-24 14:45 | disposition home or self-care (01) ==
LOC: ED 12:39 → AC 12:40
PROVIDERS: Admitting Provider Surgery; Emergency Provider Emergency Medicine; PCP Nurse Practitioner Family; Referring Provider Emergency Medicine; Visit Provider Surgery
PROC: 0DTJ4ZZ Resection of Appendix, Percutaneous Endoscopic Approach (ICD-10-PCS; CPT 44970; principal; 2024-01-23 16:45)
DX: K35.80 Unspecified acute appendicitis (principal)
CPT/HCPCS: 44970; 36415; 36592; 74177; 80053; 81003; 81025; 83690; 84703; 85025; 96365; 96367; 96375; 96376; 99222; 99284; G0378; J0134; J1100; J1885; J2175; J2250; J2405; J2543; J2704; J3010; Q9967

== ENCOUNTER 2024-02-08 16:41 | Emergency (ER) | payer OTHER, SELFPAY ==
[2024-01-23 21:16] VITALS: BMI 16.4
--- NOTE | 2024-02-08 16:57 | DI.CT.S_ITS ---
PROCEDURE: CT CERVICAL SPINE WO CON INDICATIONS: Pain s/p fall TECHNIQUE: Noncontrast 3 mm thick sections acquired from the skull base to the T4 level. Sagittal and coronal reformats were then constructed. For radiation dose reduction, the following was used: automated exposure control, adjustment of mA and/or kV according to patient size. COMPARISON: None. FINDINGS: Image quality: Excellent. Bones: No fractures or dislocations. Visualized superior ribs are intact. Soft tissues: Prevertebral soft tissues are normal in thickness. No paravertebral hematomas. No apical pneumothoraces. IMPRESSION: No displaced fracture or traumatic subluxation. Dictated by: Toni Sy M.D. on 02/08/2024 at 17:23 Approved by: Toni Sy M.D. on 02/08/2024 at 17:25
--- NOTE | 2024-02-08 16:57 | DI.CT.S_ITS ---
PROCEDURE: CT HEAD/BRAIN WO CON INDICATIONS: Pain s/p fall TECHNIQUE: Noncontrast 4.5 mm thick angled axial sections acquired from the foramen magnum to the vertex, with coronal and sagittal reformats. For radiation dose reduction, the following was used: automated exposure control, adjustment of mA and/or kV according to patient size. COMPARISON: None. FINDINGS: Image quality: Diagnostic. CSF spaces: Basal cisterns are patent. No extra-axial fluid collections. Ventricles are normal in size and shape. Brain: No midline shift. No intracranial masses or hemorrhage. Pfeiffer-white matter interface is normal. Skull and face: Calvarium and visualized facial bones are intact, without suspicious lesions. Sinuses: Visualized sinuses and mastoids are clear. IMPRESSION: No acute intracranial pathology. Dictated by: Toni Sy M.D. on 02/08/2024 at 17:18 Approved by: Toni Sy M.D. on 02/08/2024 at 17:20
[2024-02-08 16:58] VITALS: BP 123/81; PULSE 85; RESP 19; TEMP 36.6; O2SAT 100; BMI 16.4
--- NOTE | 2024-02-08 17:03 | DI.RAD.S_ITS ---
PROCEDURE: XR HIP W PEL IF DONE LT 2V INDICATIONS: Pain s/p fall TECHNIQUE: AP pelvis with lateral view(s) of the left hip(s). COMPARISON: [facility], CT, CT ABDOMEN PELVIS W CON, 01/23/2024, 10:52. FINDINGS: Bones: No fractures or dislocations. Pelvic ring appears intact. No suspicious bony lesions. Soft tissues: The visualized bowel gas pattern is normal. No suspicious soft tissue calcifications. IMPRESSION: No acute bony abnormality. Dictated by: Toni Sy M.D. on 02/08/2024 at 17:22 Approved by: Toni Sy M.D. on 02/08/2024 at 17:23
--- NOTE | 2024-02-08 17:51 | ED_ITS ---
HPI - Fall <Tay Keen PA-C - Last Filed: 02/08/24 18:14> General Chief Complaint: Fall Stated Complaint: Fell Down Stairs, Head/L Hip Px Time Seen by Provider: 02/08/24 16:48 History of Present Illness HPI Narrative: This patient is a 38-year-old female that apparently fell down an unknown amount of stairs at home earlier today. This occurred approximately 5 hours prior to arrival according to her girlfriend at bedside. Patient is complaining of a sub jective headache, neck pain and left hip pain. The fall was unwitnessed. There were no obvious injuries on exam. The patient states that she can not recall the fall. However, she denies any signs or symptoms prior to the actual fall. She also denies paresthesias to the upper or bilateral lower extremities, blurred vision, chest pain, shortness of breath or unilateral extremity weakness. No treatments have been tried for this. Related Data Home Medications Medication Instructions Recorded Confirmed estradiol 0.01% (0.1 mg/gram) 1 g vaginal 3XW 01/23/24 02/07/24 vaginal cream Previous Rx's Medication Instructions Recorded acetaminophen 325 mg capsule 650 mg (2 x 325 mg) PO QID PRN 01/24/24 (Tylenol) pain #60 caps docusate sodium 100 mg capsule 100 mg PO BID #30 caps 01/24/24 (Colace) oxycodone 5 mg tablet 5 mg PO Q6H PRN pain #10 tabs 01/24/24 meloxicam 7.5 mg tablet 7.5 mg PO BID PRN pain (scale 02/08/24 score 4-6) #20 tabs tizanidine 4 mg tablet 4 mg PO BID PRN muscle spasticity 02/08/24 #20 tabs Allergies Allergy/AdvReac Type Severity Reaction Status Date / Time onion Allergy Anaphylaxis Verified 02/07/24 09:54 Review of Systems <Tay Keen PA-C - Last Filed: 02/08/24 18:14> Review of Systems Narrative: General: See HPI HEENT: See HPI MSK: See HPI All other review of systems have been reviewed and are ultimately negative unless otherwise stated in the HPI Patient History <Tay Keen PA-C - Last Filed: 02/08/24 18:14> Medical History Hx of fall Ambulates with cane Osteoporosis Hyperparathyroidism Neurologic abnormality Hypothyroidism Social History household members: children Smoking Status: Never smoker alcohol intake: never Smoking Status: Never smoker alcohol intake frequency: 0-2 drinks per day Substance Use Type: marijuana Exam <Tay Keen PA-C - Last Filed: 02/08/24 18:14> Initial Vital Signs Initial Vital Signs: Vital Signs Temperature 97.8 F 02/08/24 16:58 Pulse Rate 85 02/08/24 16:58 Respiratory Rate 19 02/08/24 16:58 Blood Pressure 123/81 02/08/24 16:58 Pulse Oximetry 100 02/08/24 16:58 Oxygen Delivery Method Room Air 02/08/24 16:58 HENMT Head: normal to inspection, normocephalic and atraumatic Ears: hearing grossly normal bilaterally, external ears normal, TM's normal bi laterally, EAC's normal and mastoids normal Nose: external nose normal, nares normal, nasal mucous membranes and turbinates normal and septum normal Face and sinus: normal facial exam Mouth: oral mucosae normal, lip normal, tongue normal, oropharynx normal and moist mucous membranes Teeth and gingiva: dentition normal and gingiva normal Throat: posterior oropharynx normal and uvula midline Eyes General: Yes appearance normal, both eyes and all related structures Visual Coon: normal visual coon by confrontation Alignment and Position: alignment normal and position normal Periorbital: periorbital findings normal Eyelids: eyelids normal Conjunctivae: conjunctivae normal Sclera: sclerae normal Cornea: corneas normal Pupils: PERRL EOM: EOM intact bilaterally Neck Other: Subjective paracervical tenderness to palpation. No C-spine step-offs noted. No direct C-spine tenderness. Full range of motion noted. Neurovascularly distally intact Resp Effort & Inspection: normal respiratory effort and able to speak in complete sentences Auscultation: clear to auscultation bilaterally Cardio Rate: regular rate Rhythm: regular rhythm Heart Sounds: S1 normal and S2 normal Back/Spine/Pelvis Thoracic/Lumbar Spine: thoracic and lumbar spine normal to inspection and straight leg raise negative bilaterally Skin General: no rashes or lesions noted, elasticity normal and turgor normal Neuro General: patient alert, patient awake, patient oriented x3 and gait normal Cranial Nerves: CN's II-XI intact bilaterally Cognition: normal cognition Speech: speech normal Gait: normal gait Motor: muscle tone normal throughout, strength 5/5 throughout, no pronator drift and no movement abnormalities noted Sensory Exam: no sensory deficits noted Extrem General: normal to inspection, full ROM, capillary refill normal, normal exam except as noted, no joint enlargement, no clubbing, cyanosis or edema and no pedal edema Psych Appearance: grossly normal and well kempt Mental Status: mental status grossly normal Affect: normal affect Attitude: cooperative Thought Process: normal Thought Content: normal <Ankit Bernabe DO - Last Filed: 02/08/24 18:18> Initial Vital Signs Initial Vital Signs: Vital Signs Temperature 97.8 F 02/08/24 16:58 Pulse Rate 85 02/08/24 16:58 Respiratory Rate 19 02/08/24 16:58 Blood Pressure 123/81 02/08/24 16:58 Pulse Oximetry 100 02/08/24 16:58 Oxygen Delivery Method Room Air 02/08/24 16:58 Course <Tay Keen PA-C - Last Filed: 02/08/24 18:14> Course Course Narrative: Patient was seen and examined. She had a CT scan of the head cervical spine and x-rays of the hip and pelvis performed. According to the radiologist, the studies did not reveal any acute findings. I notified the patient of the negative findings and she was then prepped for discharge home. Orders Ordered: ED Orders 02/08/24 16:57 CT cervical spine wo con Stat CT head/brain wo con Stat 02/08/24 17:03 XR hip w pel if done LT 2V Stat Vital Signs Vital signs: Vital Signs - 8 hr 02/08/24 16:58 Temperature 97.8 F Pulse Rate 85 Respiratory Rate 19 Blood Pressure 123/81 Pulse Oximetry 100 Oxygen Delivery Method Room Air Reviewed <Ankit Bernabe DO - Last Filed: 02/08/24 18:18> Orders Ordered: ED Orders 02/08/24 16:57 CT cervical spine wo con Stat CT head/brain wo con Stat 02/08/24 17:03 XR hip w pel if done LT 2V Stat Vital Signs Vital signs: Vital Signs - 8 hr 02/08/24 16:58 Temperature 97.8 F Pulse Rate 85 Respiratory Rate 19 Blood Pressure 123/81 Pulse Oximetry 100 Oxygen Delivery Method Room Air MDM - Fall <Tay Keen PA-C - Last Filed: 02/08/24 18:14> Medical Records Attestation: I reviewed the patient's medical records. Lab Data Attestation: I reviewed the patient's lab results. [facility] Narrative Medical decision making narrative: At this time, this patient is a 38-year-old female that sustained a possible fall from home. Her workup here is unremarkable. I do not believe she sustained any type of skull fracture, cervical fracture, intracranial bleed or hip fracture. She appears clinically stable for outpatient follow up. I will start her on a short course of meloxicam and tizanidine. Patient understands the treatment plan. No additional questions at the time of discharge and she will follow up as requested Discharge Plan Departure Patient Disposition: Home Clinical Impression: Fall (on) (from) other stairs and steps, initial encounter Cervical muscle strain Qualifiers: Encounter type: initial encounter Qualified Code(s): S16.1XXA - Strain of muscle, fascia and tendon at neck level, initial encounter Headache Qualifiers: Headache type: unspecified Headache chronicity pattern: acute headache Intractability: not intractable Qualified Code(s): R51.9 - Headache, unspecified Muscle strain of left hip Qualifiers: Encounter type: initial encounter Qualified Code(s): S76.012A - Strain of muscle, fascia and tendon of left hip, initial encounter Instructions: How to Prevent Falls Activity Restrictions/Additional Instructions: Expect to be sore for the next few days Start the medications tonight if needed but try and hold off until morning Rest this weekend but stretch as tolerated Follow up your PCP next week as you may require physical therapy Return here for any new, emergent concerns Prescriptions: New meloxicam 7.5 mg tablet 7.5 mg PO BID PRN (Reason: pain (scale score 4-6)) Qty: 20 0RF tizanidine 4 mg tablet 4 mg PO BID PRN (Reason: muscle spasticity) Qty: 20 0RF No Action estradiol 0.01 % (0.1 mg/gram) cream 1 g vaginal 3XW docusate sodium [Colace] 100 mg capsule 100 mg PO BID Qty: 30 0RF oxycodone 5 mg tablet 5 mg PO Q6H PRN (Reason: pain) Qty: 10 0RF acetaminophen [Tylenol] 325 mg capsule 650 mg PO QID PRN (Reason: pain) Qty: 60 0RF Referrals: Dominique Main, TELECOMMUNICATIONS MANAGER-C [Primary Care Provider] - Stand Alone Forms: Patient Portal/API/Survey ED Sign-out <Ankit Bernabe DO - Last Filed: 02/08/24 18:18> Cosign ED Attending Cosignature Attestation: Dr Bernabe Co-Sign Statement: I was available for consultation during this patient's emergency department visit. This chart is signed by myself for administrative purposes only. I did not have direct contact with this patient during this visit. They were seen independently by the APC.
[2024-02-08 18:00] VITALS: RESP 17
== END 2024-02-08 18:18 | disposition home or self-care (01) ==
PROVIDERS: Emergency Provider Physician Assistant; PCP Nurse Practitioner Family
DX: S16.1XXA Strain of muscle, fascia and tendon at neck level, initial encounter (principal); S76.012A Strain of muscle, fascia and tendon of left hip, initial encounter; M25.552 Pain in left hip; R51.9 Headache, unspecified; W10.9XXA Fall (on) (from) unspecified stairs and steps, initial encounter
CPT/HCPCS: 70450; 72125; 73502; 99281; 99284

== ENCOUNTER → 2024-03-28 10:02 | Outpatient (CLI) | payer OTHER, SELFPAY ==
[2024-01-23 21:16] VITALS: BMI 16.4
--- NOTE | 2024-03-28 10:06 | DI.US.S_ITS ---
LIMITED ULTRASOUND OF RIGHT BREAST: 03/28/2024 CLINICAL: 6 month follow-up of cysts. Comparison is made to exams dated: 03/28/2024 mammogram, 08/08/2023 mammogram, 08/08/2023 ultrasound, and 08/06/2023 mammogram - [facility]. Color flow and real-time ultrasound of the right breast 5 o'clock and 10-11 o'clock regions were performed. Pfeiffer scale images of the real-time examination were reviewed. There is a 0.8 cm x 0.5 cm x 0.3 cm oval cyst in the right breast at 5 o'clock anterior depth 6 cm from the nipple. This oval cyst is anechoic. This abnormality is increased in size. Color flow imaging demonstrates that there is no vascularity present. Previously seen cyst at the 10:00 region is no longer seen. No mass or cyst at 11:00. IMPRESSION: BENIGN There is no sonographic evidence of malignancy. The 0.8 cm simple cyst in the right breast 5:00 is benign. A 3 year screening mammogram is recommended. Exam findings were conveyed to the patient. Patient is advised to monitor for significant change. This exam was interpreted at Station ID: [id number]. Electronically Signed By: Toni Sy M.D. [facility] [place]/:03/28/2024 13:56:49 letter sent: Normal Exam ACR BI-RADS Category 2: Benign
--- NOTE | 2024-03-28 10:06 | DI.MG.S_ITS ---
UNILATERAL RIGHT DIGITAL DIAGNOSTIC MAMMOGRAM 3D/2D: 03/28/2024 CLINICAL: Short term follow up of the right breast. Comparison is made to exams dated: 08/08/2023 mammogram, 08/08/2023 ultrasound, and 08/06/2023 mammogram - [facility]. The breasts are extremely dense, which lowers the sensitivity of mammography (category d />75% glandular tissue). There is a mass in the right breast middle depth inferior region seen on the mediolateral oblique view only. This is less prominent. No other significant masses or calcifications are seen in the breast. IMPRESSION: INCOMPLETE: NEED ADDITIONAL IMAGING EVALUATION No mammographic evidence of malignancy. The possible mass in the right breast is less prominent and is indeterminate. A targeted ultrasound is recommended and will immediately follow. Based on the Tyrer Cuzick model (a risk assessment model) the patient's lifetime risk is 16.2% and her 10 year risk is 1.6%. According to the ACR, ACS, and NCCN guidelines, an annual breast MRI exam along with mammogram is recommended if the patient's lifetime risk is 20% or greater. This exam was interpreted at Station ID: [id number]. NOTE: For mammograms, a report in lay terms will be sent to the patient. Approximately 15% of breast malignancies will not be visualized mammographically. In the management of a palpable breast mass, a negative mammogram must not discourage biopsy of a clinically suspicious lesion. Electronically Signed By: Toni Sy M.D. [facility] [place]/:03/28/2024 10:42:12 letter sent: Additional Imaging Needed ACR BI-RADS Category 0: Incomplete: Need Additional Imaging Evaluation
== END ==
PROVIDERS: Family Provider Nurse Practitioner Family; PCP Nurse Practitioner Family; Referring Provider Nurse Practitioner Family; Visit Provider Nurse Practitioner Family
DX: R92.8 Other abnormal and inconclusive findings on diagnostic imaging of breast (principal); R92.343 Mammographic extreme density, bilateral breasts; N60.01 Solitary cyst of right breast
CPT/HCPCS: 76642; 77065; G0279

== ENCOUNTER 2024-06-04 11:30 | Outpatient (RCR) | payer OTHER, SELFPAY ==
[2024-01-23 21:16] VITALS: BMI 16.4
--- NOTE | 2024-04-08 12:15 | PT.OIE ---
Current Diagnoses Pain in left shoulder (04/08/24) Pain in left hip (04/08/24) Pain in left knee (04/08/24) Muscle weakness (generalized) (04/08/24) Strain of muscle and tendon of unspecified wall of thorax, initial encounter (04/08/24) Strain of muscle and tendon of unspecified wall of thorax, subsequent encounter (04/08/24) Past Medical History (Last Reviewed 02/08/24 @ 17:53 by Tay Keen PA-C) Ambulates with cane Hx of fall Hyperparathyroidism Hypothyroidism Neurologic abnormality Osteoporosis Visit Care Team Role Provider Type DAVONTE Sanderson Attending Provider Non-Staff Family Provider Primary Care Provider Referring Provider Specialty: Nursing Address: [address], [facility] Email: Physical Therapy Initial Evaluation PT-OP-A Visit Information Start: 04/08/24 13:41 Freq: Status: Active Protocol: Document 04/08/24 11:30 DCW (Rec: 04/08/24 13:42 DCW [id number]) Out-Patient Physical Therapy Visit Information Visit Information Visit Type Initial Evaluation Visit Start Time 11:30 Visit Stop Time 12:15 Visit Number 1 Number of ECG TECHNICIAN Visits 0 Evaluation Information Evaluation Date 04/08/24 PT-OP-B Current Condition Start: 04/08/24 13:41 Freq: Status: Active Protocol: Document 04/08/24 11:30 DCW (Rec: 04/09/24 10:47 DCW [id number]) Current Condition History of Current Condition Onset Date February 08, 2024 Current Complaints Extreme weakness, Hypermobility, repeated subluxations/dislocations History of Current Condition Pt is a 39 year old female presenting with a highly complex medical history. For 10+ years, she has had extreme weakness (left much worse than right), nerve and joint pain, and multiple subluxations/dislocations of mainly her hips and shoulders. Reports she was believed to have MS for 10+ years, however one month ago, an MRI revealed no lesions, and now likely DDx has changed to hypermobile EDS and fibromyalgia. In addition, pt also has stage 4 Osteoarthritis. Most recent injury occurred 11/15/24, when , two weeks after an emergency appendectomy, her left hip subluxed when descending stairs. She ended up falling down the stairs, resulting in a severe concussion (her fourth known concussion), and currently has fairly severe short-term memory loss, noting her memory currently only lasting ~30-60 minutes. Reports her hips can sublux when standing in certain positions or with specific weight bearing, usually dislocations occur more with impact, most recently when she was wake boarding. Has also dislocated both her shoulders multiple times, but I played sports growing up. 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 Uses hip braces for stability when going on longer walks. Treatment Goals Patient/Caregiver Goals Pt's main goal is to regain left strength, in order to help stabilize and support her joints. Personal Factors Other Personal Factors That May Effect Severe short-term memory loss, Therapy/Recovery requires note-taking, videos of exercise, and hand-outs PT-OP-C Subjective Start: 04/08/24 13:41 Freq: Status: Active Protocol: Document 04/08/24 11:30 DCW (Rec: 04/09/24 13:37 DCW [id number]) OP-PT Subjective Patient Comments Patient Comments Is it okay if I record this so I can refer back to it later? PT-OP-D Balance Start: 04/08/24 13:41 Freq: Status: Active Protocol: Document 04/08/24 11:30 DCW (Rec: 04/09/24 13:37 DCW [id number]) Balance Tests Single Limb Standing Single Limb- Right 9 seconds Single Limb- Left 2 seconds PT-OP-M Strength Start: 04/08/24 13:41 Freq: Status: Active Protocol: Document 04/08/24 11:30 DCW (Rec: 04/09/24 13:37 DCW [id number]) Shoulder Strength Shoulder Manual Muscle Testing Right Flexion 4- Good- Abduction (C5) 4- Good- External Rotation 4- Good- Internal Rotation 4- Good- Left Flexion 3+ Fair+ Abduction (C5) 3+ Fair+ External Rotation 3+ Fair+ Internal Rotation 3+ Fair+ Hand Recruiter Manager/Pinch Strength Hand Dominance Hand Dominance Right Hand Strength Right Recruiter Manager (lbs) 55 Comments Three Trial Average (60, 55, 50) Left Recruiter Manager (lbs) 31.67 Comments Three Trial Average (35, 30, 30) Hip Strength Hip Manual Muscle Testing Right Flexion (L2) 4- Good- Extension (S1) 4 Good Abduction 4- Good- Adduction 4- Good- External Rotation 4- Good- Internal Rotation 4- Good- Left Flexion (L2) 3 Fair Extension (S1) 2+ Poor+ Abduction 3- Fair- Adduction 2- Poor- External Rotation 3 Fair Internal Rotation 3 Fair PT-OP-Q Treatments Start: 04/08/24 13:41 Freq: Status: Active Protocol: Document 04/08/24 11:30 DCW (Rec: 04/09/24 13:37 DCW [id number]) Therapeutic Exercises Sidelying Exercises Hip Abduction Sidelying Exercise Name Hip Abduction Side bilateral Reverse Clamshell Sidelying Exercise Name Reverse Clamshell Side bilateral Clamshell Sidelying Exercise Name Clamshell Side bilateral PT-OP-T Assessment and Plan Start: 04/08/24 13:41 Freq: Status: Active Protocol: Document 04/08/24 11:30 DCW (Rec: 04/09/24 16:30 DCW [id number]) Physical Therapy Assessment Rehab Potential Rehabilitation Potential Fair Evaluation Complexity Number of Personal Factors/Comorbidities 3 or More Number of Body Systems Impaired 4 or More Clinical Presentation at Evaluation Unstable Impairments Impairments Activity Tolerance,Balance, Functional Activities, Functional Mobility,Gait,Pain, ROM,Soft Tissue Mobility, Strength,Tone Other Concerns Fall Risk High falls risk secondary to subluxation, left weakness Barriers to Rehabilitation Hypermobility/likely EDS, severe weakness, multiple subluxation/dislocation history, Stage 4 Osteoporosis, Significant memory loss, joint pain, falls, dizziness, headaches, TBI, fatigue Goals Four Impairment Pt presents with limited SLS ability, 2 seconds L; 9 seconds R Group Home Goal (LTG) Pt to demonstrate a SLS time > 10 seconds bilaterally in order to demonstrate a decrease in falls risk. LTG Duration 07/07/24 Three Impairment Pt displays left weed eradicator weakness (32# L vs 55# R) Garbage Worker Goal (LTG) Pt to demonstrate an improved three-trial average for left weed eradicator strength to >45# in order to improve ability to open jars. LTG Duration 07/07/24 Two Impairment Severe left hip instability and muscle weakness, L>R Garbage Worker Goal (LTG) Pt to present with MMT of 3+ or greater in all tested left hip planes in order to demonstrate improvement in hip stability. LTG Duration 07/07/24 One Impairment Pt does not have an appropriate home exercise program Short Term Goal (STG) Pt to be independent and compliant with an appropriate HEP STG Duration 05/09/24 Assessment Summary Assessment Pt presents with a severely complex medical history resulting in significant left- sided weakness, increased falls risk, joint instability, and significant memory loss. Pt likely DDx of Hypermobile EDS results in fairly frequent subluxations and dislocations, as well as significant joint pain. Pt left side quite a bit weaker than her right, and pt fatigues fairly quickly with activity. Recent hip subluxation resulted in a fall down the stairs, causing a significant concussion with resultant short-term memory loss, typically within 30-60 minutes. Pt will likely benefit from focus on hip, core, and shoulder strengthening to assist in stabilization of joints, as well as balance training to decrease falls risk, and improvement in activity tolerance. Pt will require additional tools to assist in memory, including recording herself performing exercises, taking notes, and voice recording instructions. Physical Therapy Plan Frequency and Duration Frequency of Treatment 2x/Week Plan of Care Start Date 04/08/24 Plan of Care End Date 07/07/24 Therapeutic Interventions Therapeutic Interventions Balance Training,Gait Training ,Home Exercise Program,Manual Therapy,Neuromuscular Re- education,Patient/Caregiver Education,Self-Care/Home Management,Soft Tissue Mobilization,Therapeutic Activities,Therapeutic Exercises Modalities Cold Pack/Ice Massage,Hot Packs Next Visit Focus/Plan Next Note Type Treatment Note Next Visit Plan hip/shoulder strengthening, weed eradicator strengthening, balance, activity tolerance
--- NOTE | 2024-04-10 17:53 | PT.OTN ---
Current Diagnoses Pain in left shoulder (04/10/24) Pain in left hip (04/10/24) Pain in left knee (04/10/24) Muscle weakness (generalized) (04/10/24) Strain of muscle and tendon of unspecified wall of thorax, initial encounter (04/10/24) Strain of muscle and tendon of unspecified wall of thorax, subsequent encounter (04/10/24) Physical Therapy Treatment Note PT-OP-A Visit Information Start: 04/08/24 13:41 Freq: Status: Active Protocol: Document 04/10/24 17:05 DCW (Rec: 04/10/24 17:53 DCW [id number]) Out-Patient Physical Therapy Visit Information Visit Information Visit Type Treatment Note Visit Start Time 17:05 Visit Stop Time 17:45 Visit Number 2 Number of HOSIERY MATER Visits 0 Evaluation Information Evaluation Date 04/08/24 PT-OP-B Current Condition Start: 04/08/24 13:41 Freq: Status: Active Protocol: Document 04/08/24 11:30 DCW (Rec: 04/09/24 10:47 DCW [id number]) Current Condition History of Current Condition Onset Date February 08, 2024 Current Complaints Extreme weakness, Hypermobility, repeated subluxations/dislocations History of Current Condition Pt is a 39 year old female presenting with a highly complex medical history. For 10+ years, she has had extreme weakness (left much worse than right), nerve and joint pain, and multiple subluxations/dislocations of mainly her hips and shoulders. Reports she was believed to have MS for 10+ years, however one month ago, an MRI revealed no lesions, and now likely DDx has changed to hypermobile EDS and fibromyalgia. In addition, pt also has stage 4 Osteoarthritis. Most recent injury occurred 02/08/24, when , two weeks after an emergency appendectomy, her left hip subluxed when descending stairs. She ended up falling down the stairs, resulting in a severe concussion (her fourth known concussion), and currently has fairly severe short-term memory loss, noting her memory currently only lasting ~30-60 minutes. Reports her hips can sublux when standing in certain positions or with specific weight bearing, usually dislocations occur more with impact, most recently when she was wake boarding. Has also dislocated both her shoulders multiple times, but I played sports growing up. 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 Useds hip braces for stability when going on longer walks. Treatment Goals Patient/Caregiver Goals Pt's main goal is to regain left strength, in order to help stabilize and support her joints. Personal Factors Other Personal Factors That May Effect Severe short-term memory loss, Therapy/Recovery requires note-taking, videos of exercise, and hand-outs PT-OP-C Subjective Start: 04/08/24 13:41 Freq: Status: Active Protocol: Document 04/10/24 17:05 DCW (Rec: 04/10/24 17:53 DCW [id number]) OP-PT Subjective Patient Comments Patient Comments This morning doing my exercises, my left side felt really weak, but my right side just felt tight. Did hike [place] yesterday. PT-OP-D Balance Start: 04/08/24 13:41 Freq: Status: Active Protocol: Document 04/08/24 11:30 DCW (Rec: 04/09/24 13:37 DCW [id number]) Balance Tests Single Limb Standing Single Limb- Right 9 seconds Single Limb- Left 2 seconds PT-OP-M Strength Start: 04/08/24 13:41 Freq: Status: Active Protocol: Document 04/08/24 11:30 DCW (Rec: 04/09/24 13:37 DCW [id number]) Shoulder Strength Shoulder Manual Muscle Testing Right Flexion 4- Good- Abduction (C5) 4- Good- External Rotation 4- Good- Internal Rotation 4- Good- Left Flexion 3+ Fair+ Abduction (C5) 3+ Fair+ External Rotation 3+ Fair+ Internal Rotation 3+ Fair+ Hand Low Pressure Firer/Pinch Strength Hand Dominance Hand Dominance Right Hand Strength Right Low Pressure Firer (lbs) 55 Comments Three Trial Average (60, 55, 50) Left Low Pressure Firer (lbs) 31.67 Comments Three Trial Average (35, 30, 30) Hip Strength Hip Manual Muscle Testing Right Flexion (L2) 4- Good- Extension (S1) 4 Good Abduction 4- Good- Adduction 4- Good- External Rotation 4- Good- Internal Rotation 4- Good- Left Flexion (L2) 3 Fair Extension (S1) 2+ Poor+ Abduction 3- Fair- Adduction 2- Poor- External Rotation 3 Fair Internal Rotation 3 Fair PT-OP-Q Treatments Start: 04/08/24 13:41 Freq: Status: Active Protocol: Document 04/10/24 17:05 DCW (Rec: 04/10/24 17:53 [facility] [id number]) Gym Equipment Shuttle Recovery Unilateral Squats Resistance 37# Shuttle Recovery Platform Stable Bilateral Squats Resistance 75# stable, 50# unstable Shuttle Recovery Platform Stable,Unstable Shuttle Balance Red Details WBOS, Staggered, Lateral Weight Shift Therapeutic Exercises Other Exercises Step-down Other Exercise Name Step-downs Side bilateral Equipment Used 6 step R, 4 step left Comments VCs for knee alignment Resisted Abduction Other Exercise Name Resisted side-stepping Resistance Lv 1 PT-OP-T Assessment and Plan Start: 04/08/24 13:41 Freq: Status: Active Protocol: Document 04/10/24 17:05 DCW (Rec: 04/10/24 17:53 [facility] [id number]) Physical Therapy Assessment Impairments Impairments Activity Tolerance,Balance, Functional Activities, Functional Mobility,Gait,Pain, ROM,Soft Tissue Mobility, Strength,Tone Other Concerns Fall Risk High falls risk secondary to subluxation, left weakness Barriers to Rehabilitation Hypermobility/likely EDS, severe weakness, multiple subluxation/dislocation history, Stage 4 Osteoporosis, Significant memory loss, joint pain, falls, dizziness, headaches, TBI, fatigue Goals Four Impairment Pt presents with limited SLS ability, 2 seconds L; 9 seconds R Detention Goal (LTG) Pt to demonstrate a SLS time > 10 seconds bilaterally in order to demonstrate a decrease in falls risk. LTG Duration 07/07/24 Three Impairment Pt displays left almond sorter weakness (32# L vs 55# R) Regulatory Assistant Goal (LTG) Pt to demonstrate an improved three-trial average for left almond sorter strength to >45# in order to improve ability to open jars. LTG Duration 07/07/24 Two Impairment Severe left hip instability and muscle weakness, L>R Regulatory Assistant Goal (LTG) Pt to present with MMT of 3+ or greater in all tested left hip planes in order to demonstrate improvement in hip stability. LTG Duration 07/07/24 One Impairment Pt does not have an appropriate home exercise program Short Term Goal (STG) Pt to be independent and compliant with an appropriate HEP STG Duration 05/09/24 Assessment Summary Assessment Good tolerance to activity today. Needed to briefly pause and rest with resisted side- stepping due to feeling of upcoming hip subluxation. Pt felt good workout on hips today. Continue to focus on hip stabilization and LE strengthening. Physical Therapy Plan Frequency and Duration Frequency of Treatment 2x/Week Plan of Care Start Date 04/08/24 Plan of Care End Date 07/07/24 Therapeutic Interventions Therapeutic Interventions Balance Training,Gait Training ,Home Exercise Program,Manual Therapy,Neuromuscular Re- education,Patient/Caregiver Education,Self-Care/Home Management,Soft Tissue Mobilization,Therapeutic Activities,Therapeutic Exercises Modalities Cold Pack/Ice Massage,Hot Packs Next Visit Focus/Plan Next Note Type Treatment Note Next Visit Plan hip/shoulder strengthening, almond sorter strengthening, balance, activity tolerance
--- NOTE | 2024-04-15 12:19 | PT.OTN ---
Current Diagnoses Pain in left shoulder (04/15/24) Pain in left hip (04/15/24) Pain in left knee (04/15/24) Muscle weakness (generalized) (04/15/24) Strain of muscle and tendon of unspecified wall of thorax, initial encounter (04/15/24) Strain of muscle and tendon of unspecified wall of thorax, subsequent encounter (04/15/24) Physical Therapy Treatment Note PT-OP-A Visit Information Start: 04/08/24 13:41 Freq: Status: Active Protocol: Document 04/15/24 11:30 DCW (Rec: 04/15/24 12:19 DCW [id number]) Out-Patient Physical Therapy Visit Information Visit Information Visit Type Treatment Note Visit Start Time 11:30 Visit Stop Time 12:15 Visit Number 3 Number of SAMPLE SHOE INSPECTOR AND REWORKER Visits 0 Evaluation Information Evaluation Date 04/08/24 PT-OP-B Current Condition Start: 04/08/24 13:41 Freq: Status: Active Protocol: Document 04/08/24 11:30 DCW (Rec: 04/09/24 10:47 DCW [id number]) Current Condition History of Current Condition Onset Date February 08, 2024 Current Complaints Extreme weakness, Hypermobility, repeated subluxations/dislocations History of Current Condition Pt is a 39 year old female presenting with a highly complex medical history. For 10+ years, she has had extreme weakness (left much worse than right), nerve and joint pain, and multiple subluxations/dislocations of mainly her hips and shoulders. Reports she was believed to have MS for 10+ years, however one month ago, an MRI revealed no lesions, and now likely DDx has changed to hypermobile EDS and fibromyalgia. In addition, pt also has stage 4 Osteoarthritis. Most recent injury occurred 02/08/24, when , two weeks after an emergency appendectomy, her left hip subluxed when descending stairs. She ended up falling down the stairs, resulting in a severe concussion (her fourth known concussion), and currently has fairly severe short-term memory loss, noting her memory currently only lasting ~30-60 minutes. Reports her hips can sublux when standing in certain positions or with specific weight bearing, usually dislocations occur more with impact, most recently when she was wake boarding. Has also dislocated both her shoulders multiple times, but I played sports growing up. 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 Useds hip braces for stability when going on longer walks. Treatment Goals Patient/Caregiver Goals Pt's main goal is to regain left strength, in order to help stabilize and support her joints. Personal Factors Other Personal Factors That May Effect Severe short-term memory loss, Therapy/Recovery requires note-taking, videos of exercise, and hand-outs PT-OP-C Subjective Start: 04/08/24 13:41 Freq: Status: Active Protocol: Document 04/15/24 11:30 DCW (Rec: 04/15/24 12:19 DCW [id number]) OP-PT Subjective Patient Comments Patient Comments After consulting notes, pt reports she was feeling really weak on her left side with some ankle and knee pain following her last visit, but otherwise, pretty okay. PT-OP-D Balance Start: 04/08/24 13:41 Freq: Status: Active Protocol: Document 04/08/24 11:30 DCW (Rec: 04/09/24 13:37 DCW [id number]) Balance Tests Single Limb Standing Single Limb- Right 9 seconds Single Limb- Left 2 seconds PT-OP-M Strength Start: 04/08/24 13:41 Freq: Status: Active Protocol: Document 04/08/24 11:30 DCW (Rec: 04/09/24 13:37 DCW [id number]) Shoulder Strength Shoulder Manual Muscle Testing Right Flexion 4- Good- Abduction (C5) 4- Good- External Rotation 4- Good- Internal Rotation 4- Good- Left Flexion 3+ Fair+ Abduction (C5) 3+ Fair+ External Rotation 3+ Fair+ Internal Rotation 3+ Fair+ Hand Track Rider/Pinch Strength Hand Dominance Hand Dominance Right Hand Strength Right Track Rider (lbs) 55 Comments Three Trial Average (60, 55, 50) Left Track Rider (lbs) 31.67 Comments Three Trial Average (35, 30, 30) Hip Strength Hip Manual Muscle Testing Right Flexion (L2) 4- Good- Extension (S1) 4 Good Abduction 4- Good- Adduction 4- Good- External Rotation 4- Good- Internal Rotation 4- Good- Left Flexion (L2) 3 Fair Extension (S1) 2+ Poor+ Abduction 3- Fair- Adduction 2- Poor- External Rotation 3 Fair Internal Rotation 3 Fair PT-OP-Q Treatments Start: 04/08/24 13:41 Freq: Status: Active Protocol: Document 04/15/24 11:30 DCW (Rec: 04/15/24 12:19 DCW [id number]) Gym Equipment Shuttle Balance Red Details WBOS (EO/EC), Staggered (X1 turns), Lateral Weight Shift Neuro Re-Education Treatment Balance Activities Foam Details Follow laser with head turns Surface NBOS on AirEx Equipment Visual conflict board Visual Conflict Details Visual conflict board Comments WBOS with visual conflict board moving in front of vision Dynamic Ambulation Details Hallway Ambulation Comments Head turns (75 bpm) Vestibular Rehabilitation X2 Viewing Details Target and head moving in opposite directions Distance From Target Arm's length Speed as tolerated Position Seated X1 Viewing Details Static target, head turns Distance From Target Arm's length Speed as tolerated Position Seated VOR Retraining Details Head and target moving together Distance From Target Arm's length Speed as tolerated Position Seated PT-OP-T Assessment and Plan Start: 04/08/24 13:41 Freq: Status: Active Protocol: Document 04/15/24 11:30 DCW (Rec: 04/15/24 12:19 DCW [id number]) Physical Therapy Assessment Impairments Impairments Activity Tolerance,Balance, Functional Activities, Functional Mobility,Gait,Pain, ROM,Soft Tissue Mobility, Strength,Tone Other Concerns Fall Risk High falls risk secondary to subluxation, left weakness Barriers to Rehabilitation Hypermobility/likely EDS, severe weakness, multiple subluxation/dislocation history, Stage 4 Osteoporosis, Significant memory loss, joint pain, falls, dizziness, headaches, TBI, fatigue Goals Four Impairment Pt presents with limited SLS ability, 2 seconds L; 9 seconds R Veneer Stapler Goal (LTG) Pt to demonstrate a SLS time > 10 seconds bilaterally in order to demonstrate a decrease in falls risk. LTG Duration 07/07/24 Three Impairment Pt displays left lens maker weakness (32# L vs 55# R) Veneer Stapler Goal (LTG) Pt to demonstrate an improved three-trial average for left lens maker strength to >45# in order to improve ability to open jars. LTG Duration 07/07/24 Two Impairment Severe left hip instability and muscle weakness, L>R Veneer Stapler Goal (LTG) Pt to present with MMT of 3+ or greater in all tested left hip planes in order to demonstrate improvement in hip stability. LTG Duration 07/07/24 One Impairment Pt does not have an appropriate home exercise program Short Term Goal (STG) Pt to be independent and compliant with an appropriate HEP STG Duration 05/09/24 Assessment Summary Assessment Noted today pt moving en bloc with any attempts with head turning activities. Struggled significantly with addition of head turns or visual motion. Continue to focus on hip and leg stabilization, balance challenges, and activity tolerance Physical Therapy Plan Frequency and Duration Frequency of Treatment 2x/Week Plan of Care Start Date 04/08/24 Plan of Care End Date 07/07/24 Therapeutic Interventions Therapeutic Interventions Balance Training,Gait Training ,Home Exercise Program,Manual Therapy,Neuromuscular Re- education,Patient/Caregiver Education,Self-Care/Home Management,Soft Tissue Mobilization,Therapeutic Activities,Therapeutic Exercises Modalities Cold Pack/Ice Massage,Hot Packs Next Visit Focus/Plan Next Note Type Treatment Note Next Visit Plan hip/shoulder strengthening, lens maker strengthening, balance, activity tolerance
--- NOTE | 2024-04-18 12:18 | PT.OTN ---
Current Diagnoses Pain in left shoulder (04/18/24) Pain in left hip (04/18/24) Pain in left knee (04/18/24) Muscle weakness (generalized) (04/18/24) Strain of muscle and tendon of unspecified wall of thorax, initial encounter (04/18/24) Strain of muscle and tendon of unspecified wall of thorax, subsequent encounter (04/18/24) Physical Therapy Treatment Note PT-OP-A Visit Information Start: 04/08/24 13:41 Freq: Status: Active Protocol: Document 04/18/24 11:30 DCW (Rec: 04/18/24 12:17 DCW [id number]) Out-Patient Physical Therapy Visit Information Visit Information Visit Type Treatment Note Visit Start Time 11:30 Visit Stop Time 12:15 Visit Number 4 Number of SUPERVISOR COMPRESSED YEAST Visits 0 Evaluation Information Evaluation Date 04/08/24 PT-OP-B Current Condition Start: 04/08/24 13:41 Freq: Status: Active Protocol: Document 04/08/24 11:30 DCW (Rec: 04/09/24 10:47 DCW [id number]) Current Condition History of Current Condition Onset Date February 08, 2024 Current Complaints Extreme weakness, Hypermobility, repeated subluxations/dislocations History of Current Condition Pt is a 39 year old female presenting with a highly complex medical history. For 10+ years, she has had extreme weakness (left much worse than right), nerve and joint pain, and multiple subluxations/dislocations of mainly her hips and shoulders. Reports she was believed to have MS for 10+ years, however one month ago, an MRI revealed no lesions, and now likely DDx has changed to hypermobile EDS and fibromyalgia. In addition, pt also has stage 4 Osteoarthritis. Most recent injury occurred 02/08/24, when , two weeks after an emergency appendectomy, her left hip subluxed when descending stairs. She ended up falling down the stairs, resulting in a severe concussion (her fourth known concussion), and currently has fairly severe short-term memory loss, noting her memory currently only lasting ~30-60 minutes. Reports her hips can sublux when standing in certain positions or with specific weight bearing, usually dislocations occur more with impact, most recently when she was wake boarding. Has also dislocated both her shoulders multiple times, but I played sports growing up. 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 Useds hip braces for stability when going on longer walks. Treatment Goals Patient/Caregiver Goals Pt's main goal is to regain left strength, in order to help stabilize and support her joints. Personal Factors Other Personal Factors That May Effect Severe short-term memory loss, Therapy/Recovery requires note-taking, videos of exercise, and hand-outs PT-OP-C Subjective Start: 04/08/24 13:41 Freq: Status: Active Protocol: Document 04/18/24 11:30 DCW (Rec: 04/18/24 12:17 DCW [id number]) OP-PT Subjective Patient Comments Patient Comments Pt notes feeling fairly well today. PT-OP-D Balance Start: 04/08/24 13:41 Freq: Status: Active Protocol: Document 04/08/24 11:30 DCW (Rec: 04/09/24 13:37 DCW [id number]) Balance Tests Single Limb Standing Single Limb- Right 9 seconds Single Limb- Left 2 seconds PT-OP-M Strength Start: 04/08/24 13:41 Freq: Status: Active Protocol: Document 04/08/24 11:30 DCW (Rec: 04/09/24 13:37 DCW [id number]) Shoulder Strength Shoulder Manual Muscle Testing Right Flexion 4- Good- Abduction (C5) 4- Good- External Rotation 4- Good- Internal Rotation 4- Good- Left Flexion 3+ Fair+ Abduction (C5) 3+ Fair+ External Rotation 3+ Fair+ Internal Rotation 3+ Fair+ Hand Driller'S Offsider/Pinch Strength Hand Dominance Hand Dominance Right Hand Strength Right Driller'S Offsider (lbs) 55 Comments Three Trial Average (60, 55, 50) Left Driller'S Offsider (lbs) 31.67 Comments Three Trial Average (35, 30, 30) Hip Strength Hip Manual Muscle Testing Right Flexion (L2) 4- Good- Extension (S1) 4 Good Abduction 4- Good- Adduction 4- Good- External Rotation 4- Good- Internal Rotation 4- Good- Left Flexion (L2) 3 Fair Extension (S1) 2+ Poor+ Abduction 3- Fair- Adduction 2- Poor- External Rotation 3 Fair Internal Rotation 3 Fair PT-OP-Q Treatments Start: 04/08/24 13:41 Freq: Status: Active Protocol: Document 04/18/24 11:30 DCW (Rec: 04/18/24 12:17 [facility] [id number]) Gym Equipment Shuttle Recovery Unilateral Squats Resistance 37# Shuttle Recovery Platform Stable Bilateral Squats Resistance 75# stable, 50# unstable Shuttle Recovery Platform Stable,Unstable Shuttle Balance Red Details WBOS (EO/EC), Staggered, Lateral Weight Shift Therapeutic Exercises Standing Exercises Hip Extension Standing Exercise Name Hip Extension Side bilateral Resistance Lv 1 loop Equipment Used // bars Comments Heavy UE use for help stabilizing pelvis Hip Abduction Standing Exercise Name Hip Abduction Side bilateral Resistance Lv 1 loop Equipment Used // bars Comments Heavy UE use for help stabilizing pelvis Other Exercises Step-down Other Exercise Name Step-downs Side bilateral Equipment Used 6 step R, 4 step left Comments VCs for knee alignment Neuro Re-Education Treatment Balance Activities Foam Details Marching Surface Large blue foam Comments Instability in left glute med results in difficulty stabilizing pelvis Dynamic Ambulation Details Hallway Ambulation Comments Head turns (75 bpm) - horizontal, vertical, diagonal PT-OP-T Assessment and Plan Start: 04/08/24 13:41 Freq: Status: Active Protocol: Document 04/18/24 11:30 DCW (Rec: 04/18/24 12:17 [facility] [id number]) Physical Therapy Assessment Impairments Impairments Activity Tolerance,Balance, Functional Activities, Functional Mobility,Gait,Pain, ROM,Soft Tissue Mobility, Strength,Tone Other Concerns Fall Risk High falls risk secondary to subluxation, left weakness Barriers to Rehabilitation Hypermobility/likely EDS, severe weakness, multiple subluxation/dislocation history, Stage 4 Osteoporosis, Significant memory loss, joint pain, falls, dizziness, headaches, TBI, fatigue Goals Four Impairment Pt presents with limited SLS ability, 2 seconds L; 9 seconds R Administrative Manager Goal (LTG) Pt to demonstrate a SLS time > 10 seconds bilaterally in order to demonstrate a decrease in falls risk. LTG Duration 07/07/24 Three Impairment Pt displays left software licensing analyst weakness (32# L vs 55# R) Intermediate Goal (LTG) Pt to demonstrate an improved three-trial average for left software licensing analyst strength to >45# in order to improve ability to open jars. LTG Duration 07/07/24 Two Impairment Severe left hip instability and muscle weakness, L>R Intermediate Goal (LTG) Pt to present with MMT of 3+ or greater in all tested left hip planes in order to demonstrate improvement in hip stability. LTG Duration 07/07/24 One Impairment Pt does not have an appropriate home exercise program Short Term Goal (STG) Pt to be independent and compliant with an appropriate HEP STG Duration 05/09/24 Assessment Summary Assessment Performing segmental movements of head on body much better today, some increased stability on shuttle balance. Does need verbal cues for step -downs to prevent knee from falling inward. Physical Therapy Plan Frequency and Duration Frequency of Treatment 2x/Week Plan of Care Start Date 04/08/24 Plan of Care End Date 07/07/24 Therapeutic Interventions Therapeutic Interventions Balance Training,Gait Training ,Home Exercise Program,Manual Therapy,Neuromuscular Re- education,Patient/Caregiver Education,Self-Care/Home Management,Soft Tissue Mobilization,Therapeutic Activities,Therapeutic Exercises Modalities Cold Pack/Ice Massage,Hot Packs Next Visit Focus/Plan Next Note Type Treatment Note Next Visit Plan hip/shoulder strengthening, software licensing analyst strengthening, balance, activity tolerance
--- NOTE | 2024-04-30 10:39 | PT-OP ANOTE ---
Pt had to cancel today's appt due to appt in [place].
--- NOTE | 2024-05-02 12:16 | PT.OTN ---
Current Diagnoses Pain in left shoulder (05/02/24) Pain in left hip (05/02/24) Pain in left knee (05/02/24) Muscle weakness (generalized) (05/02/24) Strain of muscle and tendon of unspecified wall of thorax, initial encounter (05/02/24) Strain of muscle and tendon of unspecified wall of thorax, subsequent encounter (05/02/24) Physical Therapy Treatment Note PT-OP-A Visit Information Start: 04/08/24 13:41 Freq: Status: Active Protocol: Document 05/02/24 11:30 DCW (Rec: 05/02/24 12:16 DCW [id number]) Out-Patient Physical Therapy Visit Information Visit Information Visit Type Treatment Note Visit Start Time 11:30 Visit Stop Time 12:15 Visit Number 5 Number of HOTEL SECURITY OFFICER Visits 0 Evaluation Information Evaluation Date 04/08/24 PT-OP-B Current Condition Start: 04/08/24 13:41 Freq: Status: Active Protocol: Document 04/08/24 11:30 DCW (Rec: 04/09/24 10:47 DCW [id number]) Current Condition History of Current Condition Onset Date February 08, 2024 Current Complaints Extreme weakness, Hypermobility, repeated subluxations/dislocations History of Current Condition Pt is a 39 year old female presenting with a highly complex medical history. For 10+ years, she has had extreme weakness (left much worse than right), nerve and joint pain, and multiple subluxations/dislocations of mainly her hips and shoulders. Reports she was believed to have MS for 10+ years, however one month ago, an MRI revealed no lesions, and now likely DDx has changed to hypermobile EDS and fibromyalgia. In addition, pt also has stage 4 Osteoarthritis. Most recent injury occurred 02/08/24, when , two weeks after an emergency appendectomy, her left hip subluxed when descending stairs. She ended up falling down the stairs, resulting in a severe concussion (her fourth known concussion), and currently has fairly severe short-term memory loss, noting her memory currently only lasting ~30-60 minutes. Reports her hips can sublux when standing in certain positions or with specific weight bearing, usually dislocations occur more with impact, most recently when she was wake boarding. Has also dislocated both her shoulders multiple times, but I played sports growing up. 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 Useds hip braces for stability when going on longer walks. Treatment Goals Patient/Caregiver Goals Pt's main goal is to regain left strength, in order to help stabilize and support her joints. Personal Factors Other Personal Factors That May Effect Severe short-term memory loss, Therapy/Recovery requires note-taking, videos of exercise, and hand-outs PT-OP-C Subjective Start: 04/08/24 13:41 Freq: Status: Active Protocol: Document 05/02/24 11:30 DCW (Rec: 05/02/24 12:16 DCW [id number]) OP-PT Subjective Patient Comments Patient Comments Pt notes she was able to perform her head turning exercises the full amount without dizziness this morning PT-OP-D Balance Start: 04/08/24 13:41 Freq: Status: Active Protocol: Document 04/08/24 11:30 DCW (Rec: 04/09/24 13:37 DCW [id number]) Balance Tests Single Limb Standing Single Limb- Right 9 seconds Single Limb- Left 2 seconds PT-OP-M Strength Start: 04/08/24 13:41 Freq: Status: Active Protocol: Document 04/08/24 11:30 DCW (Rec: 04/09/24 13:37 DCW [id number]) Shoulder Strength Shoulder Manual Muscle Testing Right Flexion 4- Good- Abduction (C5) 4- Good- External Rotation 4- Good- Internal Rotation 4- Good- Left Flexion 3+ Fair+ Abduction (C5) 3+ Fair+ External Rotation 3+ Fair+ Internal Rotation 3+ Fair+ Hand Restaurant Crew Member/Pinch Strength Hand Dominance Hand Dominance Right Hand Strength Right Restaurant Crew Member (lbs) 55 Comments Three Trial Average (60, 55, 50) Left Restaurant Crew Member (lbs) 31.67 Comments Three Trial Average (35, 30, 30) Hip Strength Hip Manual Muscle Testing Right Flexion (L2) 4- Good- Extension (S1) 4 Good Abduction 4- Good- Adduction 4- Good- External Rotation 4- Good- Internal Rotation 4- Good- Left Flexion (L2) 3 Fair Extension (S1) 2+ Poor+ Abduction 3- Fair- Adduction 2- Poor- External Rotation 3 Fair Internal Rotation 3 Fair PT-OP-Q Treatments Start: 04/08/24 13:41 Freq: Status: Active Protocol: Document 05/02/24 11:30 DCW (Rec: 05/02/24 12:16 DCW [id number]) Gym Equipment Shuttle Recovery Plyometric Details Focus on knee stability Resistance 25# Unilateral Squats Resistance 37# Shuttle Recovery Platform Stable Bilateral Squats Resistance 75# Shuttle Recovery Platform Unstable Shuttle Balance Red Details WBOS (EO/EC), Staggered (X1), Lateral Weight Shift Neuro Re-Education Treatment Balance Activities BOSU Squat Details BOSU Squat Surface Blue BOSU BOSU Lunge Details BOSU Lunge Surface Blue BOSU Dynamic Ambulation Details Hallway Ambulation Comments Head turns (80 bpm) - horizontal, vertical, diagonal , circles PT-OP-T Assessment and Plan Start: 04/08/24 13:41 Freq: Status: Active Protocol: Document 05/02/24 11:30 DCW (Rec: 05/02/24 12:16 DCW [id number]) Physical Therapy Assessment Impairments Impairments Activity Tolerance,Balance, Functional Activities, Functional Mobility,Gait,Pain, ROM,Soft Tissue Mobility, Strength,Tone Other Concerns Fall Risk High falls risk secondary to subluxation, left weakness Barriers to Rehabilitation Hypermobility/likely EDS, severe weakness, multiple subluxation/dislocation history, Stage 4 Osteoporosis, Significant memory loss, joint pain, falls, dizziness, headaches, TBI, fatigue Goals Four Impairment Pt presents with limited SLS ability, 2 seconds L; 9 seconds R Product Development Engineer Goal (LTG) Pt to demonstrate a SLS time > 10 seconds bilaterally in order to demonstrate a decrease in falls risk. LTG Duration 07/07/24 Three Impairment Pt displays left church history teacher weakness (32# L vs 55# R) Half-Way Goal (LTG) Pt to demonstrate an improved three-trial average for left church history teacher strength to >45# in order to improve ability to open jars. LTG Duration 07/07/24 Two Impairment Severe left hip instability and muscle weakness, L>R Product Development Engineer Goal (LTG) Pt to present with MMT of 3+ or greater in all tested left hip planes in order to demonstrate improvement in hip stability. LTG Duration 07/07/24 One Impairment Pt does not have an appropriate home exercise program Short Term Goal (STG) Pt to be independent and compliant with an appropriate HEP STG Duration 05/09/24 Assessment Summary Assessment Pt continues to experience difficulty with valgus movement in knee with lunges, squats, and stairs, but balance is showing very good improvement, head turns more manageable, even with increased speed of metronome today. Physical Therapy Plan Frequency and Duration Frequency of Treatment 2x/Week Plan of Care Start Date 04/08/24 Plan of Care End Date 07/07/24 Therapeutic Interventions Therapeutic Interventions Balance Training,Gait Training ,Home Exercise Program,Manual Therapy,Neuromuscular Re- education,Patient/Caregiver Education,Self-Care/Home Management,Soft Tissue Mobilization,Therapeutic Activities,Therapeutic Exercises Modalities Cold Pack/Ice Massage,Hot Packs Next Visit Focus/Plan Next Note Type Treatment Note Next Visit Plan hip/shoulder strengthening, church history teacher strengthening, balance, activity tolerance
--- NOTE | 2024-05-12 12:15 | PT.OTN ---
Current Diagnoses Pain in left shoulder (05/12/24) Pain in left hip (05/12/24) Pain in left knee (05/12/24) Muscle weakness (generalized) (05/12/24) Strain of muscle and tendon of unspecified wall of thorax, initial encounter (05/12/24) Strain of muscle and tendon of unspecified wall of thorax, subsequent encounter (05/12/24) Physical Therapy Treatment Note PT-OP-A Visit Information Start: 04/08/24 13:41 Freq: Status: Active Protocol: Document 05/12/24 11:30 DCW (Rec: 05/12/24 12:15 DCW [id number]) Out-Patient Physical Therapy Visit Information Visit Information Visit Type Treatment Note Visit Start Time 11:30 Visit Stop Time 12:15 Visit Number 6 Number of PUBLIC DEFENDER Visits 0 Evaluation Information Evaluation Date 04/08/24 PT-OP-B Current Condition Start: 04/08/24 13:41 Freq: Status: Active Protocol: Document 04/08/24 11:30 DCW (Rec: 04/09/24 10:47 DCW [id number]) Current Condition History of Current Condition Onset Date February 08, 2024 Current Complaints Extreme weakness, Hypermobility, repeated subluxations/dislocations History of Current Condition Pt is a 39 year old female presenting with a highly complex medical history. For 10+ years, she has had extreme weakness (left much worse than right), nerve and joint pain, and multiple subluxations/dislocations of mainly her hips and shoulders. Reports she was believed to have MS for 10+ years, however one month ago, an MRI revealed no lesions, and now likely DDx has changed to hypermobile EDS and fibromyalgia. In addition, pt also has stage 4 Osteoarthritis. Most recent injury occurred 02/08/24, when , two weeks after an emergency appendectomy, her left hip subluxed when descending stairs. She ended up falling down the stairs, resulting in a severe concussion (her fourth known concussion), and currently has fairly severe short-term memory loss, noting her memory currently only lasting ~30-60 minutes. Reports her hips can sublux when standing in certain positions or with specific weight bearing, usually dislocations occur more with impact, most recently when she was wake boarding. Has also dislocated both her shoulders multiple times, but I played sports growing up. 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 Useds hip braces for stability when going on longer walks. Treatment Goals Patient/Caregiver Goals Pt's main goal is to regain left strength, in order to help stabilize and support her joints. Personal Factors Other Personal Factors That May Effect Severe short-term memory loss, Therapy/Recovery requires note-taking, videos of exercise, and hand-outs PT-OP-C Subjective Start: 04/08/24 13:41 Freq: Status: Active Protocol: Document 05/12/24 11:30 DCW (Rec: 05/12/24 12:15 DCW [id number]) OP-PT Subjective Patient Comments Patient Comments Brando she has officially been diagnosed with Hypermobile EDS and Fibromyalgia. PT-OP-D Balance Start: 04/08/24 13:41 Freq: Status: Active Protocol: Document 04/08/24 11:30 DCW (Rec: 04/09/24 13:37 DCW [id number]) Balance Tests Single Limb Standing Single Limb- Right 9 seconds Single Limb- Left 2 seconds PT-OP-M Strength Start: 04/08/24 13:41 Freq: Status: Active Protocol: Document 04/08/24 11:30 DCW (Rec: 04/09/24 13:37 DCW [id number]) Shoulder Strength Shoulder Manual Muscle Testing Right Flexion 4- Good- Abduction (C5) 4- Good- External Rotation 4- Good- Internal Rotation 4- Good- Left Flexion 3+ Fair+ Abduction (C5) 3+ Fair+ External Rotation 3+ Fair+ Internal Rotation 3+ Fair+ Hand Data Scientist/Pinch Strength Hand Dominance Hand Dominance Right Hand Strength Right Data Scientist (lbs) 55 Comments Three Trial Average (60, 55, 50) Left Data Scientist (lbs) 31.67 Comments Three Trial Average (35, 30, 30) Hip Strength Hip Manual Muscle Testing Right Flexion (L2) 4- Good- Extension (S1) 4 Good Abduction 4- Good- Adduction 4- Good- External Rotation 4- Good- Internal Rotation 4- Good- Left Flexion (L2) 3 Fair Extension (S1) 2+ Poor+ Abduction 3- Fair- Adduction 2- Poor- External Rotation 3 Fair Internal Rotation 3 Fair PT-OP-Q Treatments Start: 04/08/24 13:41 Freq: Status: Active Protocol: Document 05/12/24 11:30 DCW (Rec: 05/12/24 12:15 DCW [id number]) Gym Equipment Shuttle Recovery Plyometric Details Focus on knee stability Resistance 37# Unilateral Squats Resistance 37# Shuttle Recovery Platform Stable Bilateral Squats Resistance 75# Shuttle Recovery Platform Unstable Shuttle Balance Red Details WBOS (EO/EC), Staggered, Lateral Weight Shift Therapeutic Exercises Sidelying Exercises Reverse Clamshell Sidelying Exercise Name Reverse Clamshell Side bilateral Resistance Lv 2 loop Clamshell Sidelying Exercise Name Clamshell Side bilateral Resistance Lv 2 loop Neuro Re-Education Treatment Balance Activities Toe Tap Details Toe-tap /c cones Surface Green Foam Equipment 3 cones each foot, 4# ankle weights BOSU Squat Details BOSU Squat Surface Blue BOSU BOSU Lunge Details BOSU Lunge Surface Blue BOSU Dynamic Ambulation Details Hallway Ambulation Comments Head turns (120 bpm) - horizontal, vertical, diagonal , PT-OP-T Assessment and Plan Start: 04/08/24 13:41 Freq: Status: Active Protocol: Document 05/12/24 11:30 DCW (Rec: 05/12/24 12:15 DCW [id number]) Physical Therapy Assessment Assessment Summary Assessment Added T-band for clamshell/ reverse clamshell to increase difficulty. Pt showing great improvement with knee stabilization and hip strength . Head turn activities also continue to improve. Physical Therapy Plan Frequency and Duration Frequency of Treatment 2x/Week Plan of Care Start Date 04/08/24 Plan of Care End Date 07/07/24 Therapeutic Interventions Therapeutic Interventions Balance Training,Gait Training ,Home Exercise Program,Manual Therapy,Neuromuscular Re- education,Patient/Caregiver Education,Self-Care/Home Management,Soft Tissue Mobilization,Therapeutic Activities,Therapeutic Exercises Modalities Cold Pack/Ice Massage,Hot Packs Next Visit Focus/Plan Next Note Type Treatment Note Next Visit Plan hip/shoulder strengthening, etcher aircraft strengthening, balance, activity tolerance
--- NOTE | 2024-05-14 12:12 | PT.OTN ---
Current Diagnoses Pain in left shoulder (05/14/24) Pain in left hip (05/14/24) Pain in left knee (05/14/24) Muscle weakness (generalized) (05/14/24) Strain of muscle and tendon of unspecified wall of thorax, initial encounter (05/14/24) Strain of muscle and tendon of unspecified wall of thorax, subsequent encounter (05/14/24) Physical Therapy Treatment Note PT-OP-A Visit Information Start: 04/08/24 13:41 Freq: Status: Active Protocol: Document 05/14/24 11:30 DCW (Rec: 05/14/24 12:12 DCW [id number]) Out-Patient Physical Therapy Visit Information Visit Information Visit Type Treatment Note Visit Start Time 11:30 Visit Stop Time 12:15 Visit Number 7 Number of PRINTING EQUIPMENT MECHANIC APPRENTICE Visits 0 Evaluation Information Evaluation Date 04/08/24 PT-OP-B Current Condition Start: 04/08/24 13:41 Freq: Status: Active Protocol: Document 04/08/24 11:30 DCW (Rec: 04/09/24 10:47 DCW [id number]) Current Condition History of Current Condition Onset Date February 08, 2024 Current Complaints Extreme weakness, Hypermobility, repeated subluxations/dislocations History of Current Condition Pt is a 39 year old female presenting with a highly complex medical history. For 10+ years, she has had extreme weakness (left much worse than right), nerve and joint pain, and multiple subluxations/dislocations of mainly her hips and shoulders. Reports she was believed to have MS for 10+ years, however one month ago, an MRI revealed no lesions, and now likely DDx has changed to hypermobile EDS and fibromyalgia. In addition, pt also has stage 4 Osteoarthritis. Most recent injury occurred 02/08/24, when , two weeks after an emergency appendectomy, her left hip subluxed when descending stairs. She ended up falling down the stairs, resulting in a severe concussion (her fourth known concussion), and currently has fairly severe short-term memory loss, noting her memory currently only lasting ~30-60 minutes. Reports her hips can sublux when standing in certain positions or with specific weight bearing, usually dislocations occur more with impact, most recently when she was wake boarding. Has also dislocated both her shoulders multiple times, but I played sports growing up. 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 Useds hip braces for stability when going on longer walks. Treatment Goals Patient/Caregiver Goals Pt's main goal is to regain left strength, in order to help stabilize and support her joints. Personal Factors Other Personal Factors That May Effect Severe short-term memory loss, Therapy/Recovery requires note-taking, videos of exercise, and hand-outs PT-OP-C Subjective Start: 04/08/24 13:41 Freq: Status: Active Protocol: Document 05/14/24 11:30 DCW (Rec: 05/14/24 12:12 DCW [id number]) OP-PT Subjective Patient Comments Patient Comments Pt's partner reports that pt was quite sore following her last visit with the increased resistance. Pt reports addition of T-band with clamshells has greatly increased the difficulty. PT-OP-D Balance Start: 04/08/24 13:41 Freq: Status: Active Protocol: Document 04/08/24 11:30 DCW (Rec: 04/09/24 13:37 DCW [id number]) Balance Tests Single Limb Standing Single Limb- Right 9 seconds Single Limb- Left 2 seconds PT-OP-M Strength Start: 04/08/24 13:41 Freq: Status: Active Protocol: Document 04/08/24 11:30 DCW (Rec: 04/09/24 13:37 DCW [id number]) Shoulder Strength Shoulder Manual Muscle Testing Right Flexion 4- Good- Abduction (C5) 4- Good- External Rotation 4- Good- Internal Rotation 4- Good- Left Flexion 3+ Fair+ Abduction (C5) 3+ Fair+ External Rotation 3+ Fair+ Internal Rotation 3+ Fair+ Hand Weaver Apprentice/Pinch Strength Hand Dominance Hand Dominance Right Hand Strength Right Weaver Apprentice (lbs) 55 Comments Three Trial Average (60, 55, 50) Left Weaver Apprentice (lbs) 31.67 Comments Three Trial Average (35, 30, 30) Hip Strength Hip Manual Muscle Testing Right Flexion (L2) 4- Good- Extension (S1) 4 Good Abduction 4- Good- Adduction 4- Good- External Rotation 4- Good- Internal Rotation 4- Good- Left Flexion (L2) 3 Fair Extension (S1) 2+ Poor+ Abduction 3- Fair- Adduction 2- Poor- External Rotation 3 Fair Internal Rotation 3 Fair PT-OP-Q Treatments Start: 04/08/24 13:41 Freq: Status: Active Protocol: Document 05/14/24 11:30 DCW (Rec: 05/14/24 12:12 DCW [id number]) Gym Equipment Shuttle Balance Red Details WBOS (EO/EC, X1), Staggered, Lateral Weight Shift Therapeutic Ball Hip Flexion Exercise Details Resisted hip/knee flexion Ball Size/Color Red - 55 cm Lv 2 T-band Body Position Supine Bridging Exercise Details Bridging /c feet on ball Ball Size/Color Red - 55 cm Body Position Supine Comments added Hamstring curls Neuro Re-Education Treatment Balance Activities Toe Tap Details Toe-tap /c cones Surface Blue Foam Equipment 3 cones each foot, 5# ankle weights PT-OP-T Assessment and Plan Start: 04/08/24 13:41 Freq: Status: Active Protocol: Document 05/14/24 11:30 DCW (Rec: 05/14/24 12:12 DCW [id number]) Physical Therapy Assessment Impairments Impairments Activity Tolerance,Balance, Functional Activities, Functional Mobility,Gait,Pain, ROM,Soft Tissue Mobility, Strength,Tone Other Concerns Fall Risk High falls risk secondary to subluxation, left weakness Barriers to Rehabilitation Hypermobility/likely EDS, severe weakness, multiple subluxation/dislocation history, Stage 4 Osteoporosis, Significant memory loss, joint pain, falls, dizziness, headaches, TBI, fatigue Goals Four Impairment Pt presents with limited SLS ability, 2 seconds L; 9 seconds R Senior Relationship Manager Goal (LTG) Pt to demonstrate a SLS time > 10 seconds bilaterally in order to demonstrate a decrease in falls risk. LTG Duration 07/07/24 Three Impairment Pt displays left senior administrative support weakness (32# L vs 55# R) Care Home Goal (LTG) Pt to demonstrate an improved three-trial average for left senior administrative support strength to >45# in order to improve ability to open jars. LTG Duration 07/07/24 Two Impairment Severe left hip instability and muscle weakness, L>R Senior Relationship Manager Goal (LTG) Pt to present with MMT of 3+ or greater in all tested left hip planes in order to demonstrate improvement in hip stability. LTG Duration 07/07/24 One Impairment Pt does not have an appropriate home exercise program Short Term Goal (STG) Pt to be independent and compliant with an appropriate HEP STG Duration 05/09/24 Assessment Summary Assessment Pt and partner note there seem to be tiny bits of memory breaking through, pt able to recognize that a different color foam was used today with some of the balance exercises . Pt showing substantial improvement on shuttle balance and with stabilization of hips. Continue to progress hip strengthening and balance challenges. Physical Therapy Plan Frequency and Duration Frequency of Treatment 2x/Week Plan of Care Start Date 04/08/24 Plan of Care End Date 07/07/24 Therapeutic Interventions Therapeutic Interventions Balance Training,Gait Training ,Home Exercise Program,Manual Therapy,Neuromuscular Re- education,Patient/Caregiver Education,Self-Care/Home Management,Soft Tissue Mobilization,Therapeutic Activities,Therapeutic Exercises Modalities Cold Pack/Ice Massage,Hot Packs Next Visit Focus/Plan Next Note Type Treatment Note Next Visit Plan hip/shoulder strengthening, senior administrative support strengthening, balance, activity tolerance
--- NOTE | 2024-05-27 12:14 | PT.OTN ---
Current Diagnoses Pain in left shoulder (05/27/24) Pain in left hip (05/27/24) Pain in left knee (05/27/24) Muscle weakness (generalized) (05/27/24) Strain of muscle and tendon of unspecified wall of thorax, initial encounter (05/27/24) Strain of muscle and tendon of unspecified wall of thorax, subsequent encounter (05/27/24) Physical Therapy Treatment Note PT-OP-A Visit Information Start: 04/08/24 13:41 Freq: Status: Active Protocol: Document 05/27/24 11:30 DCW (Rec: 05/27/24 12:13 DCW [id number]) Out-Patient Physical Therapy Visit Information Visit Information Visit Type Treatment Note Visit Start Time 11:30 Visit Stop Time 12:15 Visit Number 8 Number of MANAGER [place] Visits 0 Evaluation Information Evaluation Date 04/08/24 PT-OP-B Current Condition Start: 04/08/24 13:41 Freq: Status: Active Protocol: Document 04/08/24 11:30 DCW (Rec: 04/09/24 10:47 DCW [id number]) Current Condition History of Current Condition Onset Date February 08, 2024 Current Complaints Extreme weakness, Hypermobility, repeated subluxations/dislocations History of Current Condition Pt is a 39 year old female presenting with a highly complex medical history. For 10+ years, she has had extreme weakness (left much worse than right), nerve and joint pain, and multiple subluxations/dislocations of mainly her hips and shoulders. Reports she was believed to have MS for 10+ years, however one month ago, an MRI revealed no lesions, and now likely DDx has changed to hypermobile EDS and fibromyalgia. In addition, pt also has stage 4 Osteoarthritis. Most recent injury occurred 02/08/24, when , two weeks after an emergency appendectomy, her left hip subluxed when descending stairs. She ended up falling down the stairs, resulting in a severe concussion (her fourth known concussion), and currently has fairly severe short-term memory loss, noting her memory currently only lasting ~30-60 minutes. Reports her hips can sublux when standing in certain positions or with specific weight bearing, usually dislocations occur more with impact, most recently when she was wake boarding. Has also dislocated both her shoulders multiple times, but I played sports growing up. 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 Useds hip braces for stability when going on longer walks. Treatment Goals Patient/Caregiver Goals Pt's main goal is to regain left strength, in order to help stabilize and support her joints. Personal Factors Other Personal Factors That May Effect Severe short-term memory loss, Therapy/Recovery requires note-taking, videos of exercise, and hand-outs PT-OP-C Subjective Start: 04/08/24 13:41 Freq: Status: Active Protocol: Document 05/27/24 11:30 DCW (Rec: 05/27/24 12:13 DCW [id number]) OP-PT Subjective Patient Comments Patient Comments Has been performing HEP, got 5 # ankle weights, as well as a T-ball, has been very consistent with all activities . Does note knees and ankles are occasionally hurting, feels it may be due to not correcting myself when I should be. PT-OP-D Balance Start: 04/08/24 13:41 Freq: Status: Active Protocol: Document 04/08/24 11:30 DCW (Rec: 04/09/24 13:37 DCW [id number]) Balance Tests Single Limb Standing Single Limb- Right 9 seconds Single Limb- Left 2 seconds PT-OP-M Strength Start: 04/08/24 13:41 Freq: Status: Active Protocol: Document 04/08/24 11:30 DCW (Rec: 04/09/24 13:37 DCW [id number]) Shoulder Strength Shoulder Manual Muscle Testing Right Flexion 4- Good- Abduction (C5) 4- Good- External Rotation 4- Good- Internal Rotation 4- Good- Left Flexion 3+ Fair+ Abduction (C5) 3+ Fair+ External Rotation 3+ Fair+ Internal Rotation 3+ Fair+ Hand It Desktop Support Technician/Pinch Strength Hand Dominance Hand Dominance Right Hand Strength Right It Desktop Support Technician (lbs) 55 Comments Three Trial Average (60, 55, 50) Left It Desktop Support Technician (lbs) 31.67 Comments Three Trial Average (35, 30, 30) Hip Strength Hip Manual Muscle Testing Right Flexion (L2) 4- Good- Extension (S1) 4 Good Abduction 4- Good- Adduction 4- Good- External Rotation 4- Good- Internal Rotation 4- Good- Left Flexion (L2) 3 Fair Extension (S1) 2+ Poor+ Abduction 3- Fair- Adduction 2- Poor- External Rotation 3 Fair Internal Rotation 3 Fair PT-OP-Q Treatments Start: 04/08/24 13:41 Freq: Status: Active Protocol: Document 05/27/24 11:30 DCW (Rec: 05/27/24 12:13 DCW [id number]) Gym Equipment Shuttle Recovery Plyometric Details Focus on knee stability Resistance 37# Bilateral Squats Resistance 87# Shuttle Recovery Platform Unstable Shuttle Balance Red Details WBOS (EO/EC, Squats), Staggered (X1), Lateral Weight Shift Therapeutic Exercises Standing Exercises Sliders Standing Exercise Name Sliders - Abduction, Extension Side bilateral Equipment Used Furniture Sliders Other Exercises Step-down Other Exercise Name Step-downs Side bilateral Equipment Used 8 step Comments VCs for knee alignment Neuro Re-Education Treatment Balance Activities Dynamic Ambulation Details Hallway Ambulation Comments Head turns (120 bpm) - horizontal, vertical, diagonal , circles PT-OP-T Assessment and Plan Start: 04/08/24 13:41 Freq: Status: Active Protocol: Document 05/27/24 11:30 DCW (Rec: 05/27/24 12:13 DCW [id number]) Physical Therapy Assessment Impairments Impairments Activity Tolerance,Balance, Functional Activities, Functional Mobility,Gait,Pain, ROM,Soft Tissue Mobility, Strength,Tone Other Concerns Fall Risk High falls risk secondary to subluxation, left weakness Barriers to Rehabilitation Hypermobility/likely EDS, severe weakness, multiple subluxation/dislocation history, Stage 4 Osteoporosis, Significant memory loss, joint pain, falls, dizziness, headaches, TBI, fatigue Goals Four Impairment Pt presents with limited SLS ability, 2 seconds L; 9 seconds R Forestry Adviser Goal (LTG) Pt to demonstrate a SLS time > 10 seconds bilaterally in order to demonstrate a decrease in falls risk. LTG Duration 07/07/24 Three Impairment Pt displays left morning show host weakness (32# L vs 55# R) Residential Goal (LTG) Pt to demonstrate an improved three-trial average for left morning show host strength to >45# in order to improve ability to open jars. LTG Duration 07/07/24 Two Impairment Severe left hip instability and muscle weakness, L>R Forestry Adviser Goal (LTG) Pt to present with MMT of 3+ or greater in all tested left hip planes in order to demonstrate improvement in hip stability. LTG Duration 07/07/24 One Impairment Pt does not have an appropriate home exercise program Short Term Goal (STG) Pt to be independent and compliant with an appropriate HEP STG Duration 05/09/24 Assessment Summary Assessment Pt exhibiting tremendous improvement when it comes to head turns impacting balance, able to perform while walking and on Shuttle Balance with [id number] LOB. Showing good improvement in hip stability and continues to focus on improving stability of knees with squats/stairs. Physical Therapy Plan Frequency and Duration Frequency of Treatment 2x/Week Plan of Care Start Date 04/08/24 Plan of Care End Date 07/07/24 Therapeutic Interventions Therapeutic Interventions Balance Training,Gait Training ,Home Exercise Program,Manual Therapy,Neuromuscular Re- education,Patient/Caregiver Education,Self-Care/Home Management,Soft Tissue Mobilization,Therapeutic Activities,Therapeutic Exercises Modalities Cold Pack/Ice Massage,Hot Packs Next Visit Focus/Plan Next Note Type Treatment Note Next Visit Plan hip/shoulder strengthening, morning show host strengthening, balance, activity tolerance
--- NOTE | 2024-06-04 12:16 | PT.OTN ---
Current Diagnoses Pain in left shoulder (06/04/24) Pain in left hip (06/04/24) Pain in left knee (06/04/24) Muscle weakness (generalized) (06/04/24) Strain of muscle and tendon of unspecified wall of thorax, initial encounter (06/04/24) Strain of muscle and tendon of unspecified wall of thorax, subsequent encounter (06/04/24) Physical Therapy Treatment Note PT-OP-A Visit Information Start: 04/08/24 13:41 Freq: Status: Active Protocol: Document 06/04/24 11:30 DCW (Rec: 06/04/24 12:16 DCW [id number]) Out-Patient Physical Therapy Visit Information Visit Information Visit Type Treatment Note Visit Start Time 11:30 Visit Stop Time 12:15 Visit Number 9 Number of GRAIN SHIPPER Visits 0 Evaluation Information Evaluation Date 04/08/24 PT-OP-B Current Condition Start: 04/08/24 13:41 Freq: Status: Active Protocol: Document 04/08/24 11:30 DCW (Rec: 04/09/24 10:47 DCW [id number]) Current Condition History of Current Condition Onset Date February 08, 2024 Current Complaints Extreme weakness, Hypermobility, repeated subluxations/dislocations History of Current Condition Pt is a 39 year old female presenting with a highly complex medical history. For 10+ years, she has had extreme weakness (left much worse than right), nerve and joint pain, and multiple subluxations/dislocations of mainly her hips and shoulders. Reports she was believed to have MS for 10+ years, however one month ago, an MRI revealed no lesions, and now likely DDx has changed to hypermobile EDS and fibromyalgia. In addition, pt also has stage 4 Osteoarthritis. Most recent injury occurred 02/08/24, when , two weeks after an emergency appendectomy, her left hip subluxed when descending stairs. She ended up falling down the stairs, resulting in a severe concussion (her fourth known concussion), and currently has fairly severe short-term memory loss, noting her memory currently only lasting ~30-60 minutes. Reports her hips can sublux when standing in certain positions or with specific weight bearing, usually dislocations occur more with impact, most recently when she was wake boarding. Has also dislocated both her shoulders multiple times, but I played sports growing up. 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 Useds hip braces for stability when going on longer walks. Treatment Goals Patient/Caregiver Goals Pt's main goal is to regain left strength, in order to help stabilize and support her joints. Personal Factors Other Personal Factors That May Effect Severe short-term memory loss, Therapy/Recovery requires note-taking, videos of exercise, and hand-outs PT-OP-C Subjective Start: 04/08/24 13:41 Freq: Status: Active Protocol: Document 06/04/24 11:30 DCW (Rec: 06/04/24 12:16 DCW [id number]) OP-PT Subjective Patient Comments Patient Comments Pt notes her memory has been improving, is able to maintain ~2-3 hours. Enjoys the exercises she has been doing, has not noticed any instability in her hips. PT-OP-D Balance Start: 04/08/24 13:41 Freq: Status: Active Protocol: Document 04/08/24 11:30 DCW (Rec: 04/09/24 13:37 DCW [id number]) Balance Tests Single Limb Standing Single Limb- Right 9 seconds Single Limb- Left 2 seconds PT-OP-M Strength Start: 04/08/24 13:41 Freq: Status: Active Protocol: Document 04/08/24 11:30 DCW (Rec: 04/09/24 13:37 DCW [id number]) Shoulder Strength Shoulder Manual Muscle Testing Right Flexion 4- Good- Abduction (C5) 4- Good- External Rotation 4- Good- Internal Rotation 4- Good- Left Flexion 3+ Fair+ Abduction (C5) 3+ Fair+ External Rotation 3+ Fair+ Internal Rotation 3+ Fair+ Hand Billposter/Pinch Strength Hand Dominance Hand Dominance Right Hand Strength Right Billposter (lbs) 55 Comments Three Trial Average (60, 55, 50) Left Billposter (lbs) 31.67 Comments Three Trial Average (35, 30, 30) Hip Strength Hip Manual Muscle Testing Right Flexion (L2) 4- Good- Extension (S1) 4 Good Abduction 4- Good- Adduction 4- Good- External Rotation 4- Good- Internal Rotation 4- Good- Left Flexion (L2) 3 Fair Extension (S1) 2+ Poor+ Abduction 3- Fair- Adduction 2- Poor- External Rotation 3 Fair Internal Rotation 3 Fair PT-OP-Q Treatments Start: 04/08/24 13:41 Freq: Status: Active Protocol: Document 06/04/24 11:30 DCW (Rec: 06/04/24 12:16 DCW [id number]) Gym Equipment Shuttle Recovery Plyometric Details Focus on knee stability Resistance 37# Bilateral Squats Resistance 87# Shuttle Recovery Platform Unstable Shuttle Balance Red Details WBOS (EO/EC, X1 /c metronome, Squats), Staggered, Lateral Weight Shift Therapeutic Exercises Other Exercises Step-down Other Exercise Name Step-downs Side bilateral Equipment Used 12->8 step Comments VCs for knee alignment Resisted Abduction Other Exercise Name Resisted side-stepping /c lunge Resistance Blue loop Neuro Re-Education Treatment Balance Activities Shuttle Drills Comments 4 cones, two each 3' from center, 9' from center 5.54 5.42 5.6 5.51 5.6 5.54 Cone Drills Details Lateral weave Equipment 9 cones, 2 squares apart Comments 18.84 - 2 cones down 13.12 13.35 - 1 cone down 12.59 SLS Details SLS Surface Large blue air disc PT-OP-T Assessment and Plan Start: 04/08/24 13:41 Freq: Status: Active Protocol: Document 06/04/24 11:30 DCW (Rec: 06/04/24 12:16 DCW [id number]) Physical Therapy Assessment Impairments Impairments Activity Tolerance,Balance, Functional Activities, Functional Mobility,Gait,Pain, ROM,Soft Tissue Mobility, Strength,Tone Other Concerns Fall Risk High falls risk secondary to subluxation, left weakness Barriers to Rehabilitation Hypermobility/likely EDS, severe weakness, multiple subluxation/dislocation history, Stage 4 Osteoporosis, Significant memory loss, joint pain, falls, dizziness, headaches, TBI, fatigue Goals Four Impairment Pt presents with limited SLS ability, 2 seconds L; 9 seconds R Polymer Materials Consultant Goal (LTG) Pt to demonstrate a SLS time > 10 seconds bilaterally in order to demonstrate a decrease in falls risk. LTG Duration 07/07/24 Three Impairment Pt displays left sports clerk weakness (32# L vs 55# R) Polymer Materials Consultant Goal (LTG) Pt to demonstrate an improved three-trial average for left sports clerk strength to >45# in order to improve ability to open jars. LTG Duration 07/07/24 Two Impairment Severe left hip instability and muscle weakness, L>R Polymer Materials Consultant Goal (LTG) Pt to present with MMT of 3+ or greater in all tested left hip planes in order to demonstrate improvement in hip stability. LTG Duration 07/07/24 One Impairment Pt does not have an appropriate home exercise program Short Term Goal (STG) Pt to be independent and compliant with an appropriate HEP STG Duration 05/09/24 Assessment Summary Assessment Continues to make great progress with hip stability and improved balance. Addition of direction changing and agility activities, pt able to perform with no hip instability. Physical Therapy Plan Frequency and Duration Frequency of Treatment 2x/Week Plan of Care Start Date 04/08/24 Plan of Care End Date 07/07/24 Therapeutic Interventions Therapeutic Interventions Balance Training,Gait Training ,Home Exercise Program,Manual Therapy,Neuromuscular Re- education,Patient/Caregiver Education,Self-Care/Home Management,Soft Tissue Mobilization,Therapeutic Activities,Therapeutic Exercises Modalities Cold Pack/Ice Massage,Hot Packs Next Visit Focus/Plan Next Note Type Treatment Note Next Visit Plan hip/shoulder strengthening, sports clerk strengthening, balance, activity tolerance
--- NOTE | 2024-10-20 11:31 | PT.OPDS ---
Current Diagnoses Pain in left shoulder (06/04/24) Pain in left hip (06/04/24) Pain in left knee (06/04/24) Muscle weakness (generalized) (06/04/24) Strain of muscle and tendon of unspecified wall of thorax, initial encounter (06/04/24) Strain of muscle and tendon of unspecified wall of thorax, subsequent encounter (06/04/24) Visit Care Team Role Provider Type DAVONTE Sanderson Attending Provider Non-Staff Family Provider Primary Care Provider Referring Provider Specialty: Nursing Address: [facility], [address] [place] [address], [id number] Email: Visit Number Visit Number 9 Discharge Summary PT-OP-B Current Condition Start: 04/08/24 13:41 Freq: Status: Active Protocol: Document 04/08/24 11:30 DCW (Rec: 04/09/24 10:47 DCW [id number]) Current Condition History of Current Condition Onset Date February 08, 2024 Current Complaints Extreme weakness, Hypermobility, repeated subluxations/ dislocations History of Current Pt is a 39 year old female presenting with a highly Condition complex medical history. For 10+ years, she has had extreme weakness (left much worse than right), nerve and joint pain, and multiple subluxations/dislocations of mainly her hips and shoulders. Reports she was believed to have MS for 10+ years, however one month ago, an MRI revealed no lesions, and now likely DDx has changed to hypermobile EDS and fibromyalgia. In addition, pt also has stage 4 Osteoarthritis. Most recent injury occurred 02/08/24, when, two weeks after an emergency appendectomy, her left hip subluxed when descending stairs. She ended up falling down the stairs , resulting in a severe concussion (her fourth known concussion), and currently has fairly severe short-term memory loss, noting her memory currently only lasting ~30-60 minutes. Reports her hips can sublux when standing in certain positions or with specific weight bearing, usually dislocations occur more with impact, most recently when she was wake boarding. Has also dislocated both her shoulders multiple times, but I played sports growing up. 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 Useds hip braces for stability when going on longer walks. Treatment Goals Patient/Caregiver Pt's main goal is to regain left strength, in order to Goals help stabilize and support her joints. Personal Factors Other Personal Severe short-term memory loss, requires note-taking, Factors That May videos of exercise, and hand-outs Effect Therapy/ Recovery PT-OP-C Subjective Start: 04/08/24 13:41 Freq: Status: Active Protocol: Document 06/04/24 11:30 DCW (Rec: 06/04/24 12:16 DCW [id number]) OP-PT Subjective Patient Comments Patient Comments Pt notes her memory has been improving, is able to maintain ~2-3 hours. Enjoys the exercises she has been doing, has not noticed any instability in her hips. PT-OP-D Balance Start: 04/08/24 13:41 Freq: Status: Active Protocol: Document 04/08/24 11:30 DCW (Rec: 04/09/24 13:37 DCW [id number]) Balance Tests Single Limb Standing Single Limb- Right 9 seconds Single Limb- Left 2 seconds PT-OP-M Strength Start: 04/08/24 13:41 Freq: Status: Active Protocol: Document 04/08/24 11:30 DCW (Rec: 04/09/24 13:37 DCW [id number]) Shoulder Strength Shoulder Manual Muscle Testing Right Flexion 4- Good- Abduction (C5) 4- Good- External Rotation 4- Good- Internal Rotation 4- Good- Left Flexion 3+ Fair+ Abduction (C5) 3+ Fair+ External Rotation 3+ Fair+ Internal Rotation 3+ Fair+ Hand Supervisor Boarding/Pinch Strength Hand Dominance Hand Dominance Right Hand Strength Right Supervisor Boarding (lbs) 55 Comments Three Trial Average (60, 55, 50) Left Supervisor Boarding (lbs) 31.67 Comments Three Trial Average (35, 30, 30) Hip Strength Hip Manual Muscle Testing Right Flexion (L2) 4- Good- Extension (S1) 4 Good Abduction 4- Good- Adduction 4- Good- External Rotation 4- Good- Internal Rotation 4- Good- Left Flexion (L2) 3 Fair Extension (S1) 2+ Poor+ Abduction 3- Fair- Adduction 2- Poor- External Rotation 3 Fair Internal Rotation 3 Fair PT-OP-T Assessment and Plan Start: 04/08/24 13:41 Freq: Status: Active Protocol: Document 10/20/24 11:30 DCW (Rec: 10/20/24 11:31 DCW [id number]) Physical Therapy Assessment Assessment Summary Assessment Pt is no longer attending physical therapy. POC has , pt has not been seen in four months. Pt will be discharged from skilled therapy at this time. Physical Therapy Plan Next Visit Focus/Plan Next Note Type Discharge Summary
== END 2024-10-20 14:54 | disposition home or self-care (01) ==
LOC: PHYS 11:30
PROVIDERS: Family Provider Nurse Practitioner Family; PCP Nurse Practitioner Family; Referring Provider Nurse Practitioner Family; Visit Provider Nurse Practitioner Family
DX: S29.019D Strain of muscle and tendon of unspecified wall of thorax, subsequent encounter (principal); M62.81 Muscle weakness (generalized); M25.552 Pain in left hip; M25.562 Pain in left knee; M25.512 Pain in left shoulder; S29.019A Strain of muscle and tendon of unspecified wall of thorax, initial encounter
CPT/HCPCS: 97110; 97112; 97163

== ENCOUNTER → 2024-07-21 07:38 | Outpatient (CLI) | payer OTHER, SELFPAY ==
[2024-01-23 21:16] VITALS: BMI 16.4
--- NOTE | 2024-07-21 07:38 | DI.CT.S_ITS ---
PROCEDURE: CT CHEST WO CON INDICATIONS: Hypermobility syndrome TECHNIQUE: Noncontrast 5 mm thick sections acquired from the pulmonary apices to the posterior costophrenic angles. 1 mm lung window, 5 mm thick coronal and sagittal and 7 mm axial MIP reformats were then acquired. For radiation dose reduction, the following was used: automated exposure control, adjustment of mA and/or kV according to patient size. COMPARISON: None. FINDINGS: Image quality: Diagnostic. Lower Neck: No enlarged lymph nodes. Thyroid: No thyroid nodules which require sonographic follow up, per consensus guidelines. Axillae: No enlarged lymph nodes. Chest Wall: Unremarkable. Bones: Unremarkable. Lungs and Pleura: No pneumothorax or pleural effusions. No consolidation or suspicious nodules. Heart: Heart size is normal. No pericardial effusion. Thoracic Vessels: The aorta and pulmonary arteries demonstrate normal size. Ascending aorta measures 2.1 centimeter. Mediastinum and Janet: No enlarged lymph nodes. Esophagus: No wall thickening. No hiatal hernia. Upper Abdomen: Visualized upper abdomen solid organs and bowel loops appear normal. IMPRESSION: No aortic aneurysm. Dictated by: Wilber Teran M.D. on 07/21/2024 at 9:44 Approved by: Wilber Teran M.D. on 07/21/2024 at 9:49
--- NOTE | 2024-07-21 07:39 | DI.NM.S_ITS ---
PROCEDURE: NM EXERCISE TREADMILL NON NUC COMPARISON: None INDICATIONS: Hypermobility syndrome FINDINGS: Rest ECG sinus rhythm 59 bpm. [facility]wood protocol 9:27, maximum heart rate 169 bpm (92% peak predicted), peak blood pressure 144/68, 10.1 METS, RIDGE -4%. Exercise ECG unable to be interpreted due to artifact. The ECG 30 seconds into recovery did not show evidence of ST segment changes. No arrhythmias. The patient did not report exercise-induced chest discomfort. IMPRESSION: Equivocal test. Exercise ECG unable to be interpreted for ischemia due to artifact. Normal hemodynamic response to exercise. Fair exercise capacity. Dictated by: Julia Taylor D.O. on 07/21/2024 at 16:10 Approved by: Julia Taylor D.O. on 07/21/2024 at 16:15
== END ==
PROVIDERS: Family Provider Nurse Practitioner Family; PCP Nurse Practitioner Family; Referring Provider Internal Medicine; Visit Provider Internal Medicine
DX: M35.7 Hypermobility syndrome (principal); R07.9 Chest pain, unspecified
CPT/HCPCS: 71250; 93017